=== PATIENT | female | born 1950 | race Caucasian/White ===

== ENCOUNTER → 2018-04-15 | Day surgery (SDC) | payer MEDICARE ==
[~2018-04-15] MED LIST: Acetaminophen 500 MG TAB PO SCH; Sodium Chloride 0.9% 30 ML ONE; diphenhydrAMINE 25 MG CAP PO SCH
[2018-04-15 12:40] LABS: Hemoglobin 8.6 g/dL (12.0-16.0)
[2018-04-15 16:01] VITALS: BP 140/65; TEMP 98.3
== END ==
LOC: ONC/OP 09:13
PROVIDERS: ATTEND Internal Medicine Hematology & Oncology
PROC: 30233N1 Transfusion of Nonautologous Red Blood Cells into Peripheral Vein, Percutaneous Approach (ICD-10-PCS; principal; 2018-04-15)
DX: D64.9 Anemia, unspecified (principal); D69.6 Thrombocytopenia, unspecified
CPT/HCPCS: 36430; 85014; 85018; 86850; 86900; 86901; J1642; P9016

== ENCOUNTER 2018-05-06 09:31 | Day surgery (SDC) | payer MEDICARE ==
[2018-05-06] MEDS ORDERED: Sodium Chloride 0.9% 20 ML ONE (09:46)
[2018-05-06] MEDS ORDERED: diphenhydrAMINE 25 MG CAP PO SCH (10:00)
[2018-05-06] MEDS ORDERED: Acetaminophen 500 MG TAB PO SCH (10:00)
[2018-05-06 16:08] VITALS: BP 110/60; TEMP 98.4
== END 2018-05-06 16:08 | disposition home or self-care (01) ==
LOC: ONC/OP 09:31
PROVIDERS: ATTEND Internal Medicine Hematology & Oncology
PROC: 30233N1 Transfusion of Nonautologous Red Blood Cells into Peripheral Vein, Percutaneous Approach (ICD-10-PCS; principal; 2018-05-06)
DX: D64.9 Anemia, unspecified (principal); D69.6 Thrombocytopenia, unspecified; Z88.8 Allergy status to other drugs, medicaments and biological substances
CPT/HCPCS: 36430; 85014; 85018; 86850; 86900; 86901; J1642; P9016; Q0163

== ENCOUNTER 2018-05-28 08:03 | Day surgery (SDC) | payer MEDICARE ==
[2018-05-28] MEDS ORDERED: Sodium Chloride 0.9% 20 ML ONE (08:26)
[2018-05-28] MEDS ORDERED: diphenhydrAMINE 25 MG CAP PO SCH (08:30)
[2018-05-28] MEDS ORDERED: Acetaminophen 500 MG TAB PO SCH (08:30)
[2018-05-28 11:44] LABS: #Eosinphils 0.3 thou/uL (0.0-0.7); #Lymphocytes 0.9 thou/uL (1.20-3.40); #Monocytes 0.3 thou/uL (0.11-0.59); #Neutrophils 1.8 thou/uL (1.40-6.50); %Basophils 0.4 % (0.0-1.0); %Eosinophils 7.9 % (0.0-10.0); %Lymphocytes 26.7 % (21.0-51.0); %Monocytes 9.9 % (0.0-10.0); %Neutrophils 55.2 % (42.0-75.0); Hemoglobin 8.6 g/dL (12.0-16.0); MDiff Complete? YES; Mean Corpuscular HGB CONC 32.7 g/dL (32.0-36.0); Mean Corpuscular Volume 88.9 fL (78.0-98.0); Mean Platelet Volume 9.2 fL (7.4-10.4); Platelet Count 47 thou/uL (130-400); Platelet Morphology Comment Appears Decreased; Polychromasia SLIGHT = 2-3 cells (100X) (0-2/hpf); RBC Distribution Width 13.9 % (11.5-14.5); Red Blood Cell (RBC) Count 2.96 mill/uL (4.20-5.40); White Blood Cell (WBC) Count 3.2 thou/uL (4.8-10.8)
[2018-05-28 14:31] VITALS: BP 139/62; TEMP 97.9
== END 2018-05-28 14:47 | disposition home or self-care (01) ==
LOC: ONC/OP 08:03
PROVIDERS: ATTEND Internal Medicine Hematology & Oncology
PROC: 30233N1 Transfusion of Nonautologous Red Blood Cells into Peripheral Vein, Percutaneous Approach (ICD-10-PCS; principal; 2018-05-28)
DX: D64.9 Anemia, unspecified (principal); D69.6 Thrombocytopenia, unspecified; Z88.8 Allergy status to other drugs, medicaments and biological substances
CPT/HCPCS: 36430; 85025; 86850; 86870; 86900; 86901; 86905; 86922; J1642; P9016; Q0163

== ENCOUNTER 2018-06-17 09:52 | Day surgery (SDC) | payer MEDICARE ==
[2018-06-17] MEDS ORDERED: Sodium Chloride 0.9% 20 ML ONE (10:33)
[2018-06-17] MEDS ORDERED: Acetaminophen 500 MG TAB PO SCH (11:00)
[2018-06-17] MEDS ORDERED: diphenhydrAMINE 25 MG CAP PO SCH (11:00)
[2018-06-17 15:46] VITALS: BP 140/63; TEMP 98.3
[2018-06-17 15:58] LABS: #Eosinphils 0.3 thou/uL (0.0-0.7); #Lymphocytes 0.8 thou/uL (1.20-3.40); #Monocytes 0.2 thou/uL (0.11-0.59); %Basophils 0.7 % (0.0-1.0); %Eosinophils 12.1 % (0.0-10.0); %Lymphocytes 35.7 % (21.0-51.0); %Monocytes 8.9 % (0.0-10.0); %Neutrophils 42.6 % (42.0-75.0); Hemoglobin 8.5 g/dL (12.0-16.0); Mean Corpuscular HGB CONC 33.5 g/dL (32.0-36.0); Mean Corpuscular Hemoglobin 29.4 pg (27.0-31.0); Mean Corpuscular Volume 87.8 fL (78.0-98.0); Mean Platelet Volume 8.7 fL (7.4-10.4); Platelet Count 34 thou/uL (130-400); RBC Distribution Width 13.2 % (11.5-14.5); Red Blood Cell (RBC) Count 2.89 mill/uL (4.20-5.40); White Blood Cell (WBC) Count 2.3 thou/uL (4.8-10.8)
== END 2018-06-17 15:43 | disposition home or self-care (01) ==
LOC: ONC/OP 09:52
PROVIDERS: ATTEND Internal Medicine Hematology & Oncology
PROC: 30233N1 Transfusion of Nonautologous Red Blood Cells into Peripheral Vein, Percutaneous Approach (ICD-10-PCS; principal; 2018-06-17)
DX: D64.9 Anemia, unspecified (principal); D69.6 Thrombocytopenia, unspecified; Z88.8 Allergy status to other drugs, medicaments and biological substances
CPT/HCPCS: 36430; 85025; 86850; 86900; 86901; 86922; J1642; P9016; Q0163

== ENCOUNTER 2018-06-25 09:44 | Day surgery (SDC) | payer MEDICARE ==
[2018-06-25] MEDS ORDERED: Sodium Chloride 0.9% 30 ML ONE (09:47)
[2018-06-25] MEDS ORDERED: diphenhydrAMINE 25 MG CAP PO SCH (10:15)
[2018-06-25] MEDS ORDERED: Acetaminophen 500 MG TAB PO SCH (10:15)
[2018-06-25 13:30] LABS: Hemoglobin 8.9 g/dL (12.0-16.0)
[2018-06-25 16:16] VITALS: BP 113/57; TEMP 97.8
== END 2018-06-25 16:17 | disposition home or self-care (01) ==
LOC: ONC/OP 09:44
PROVIDERS: ATTEND Internal Medicine Medical Oncology
PROC: 30233N1 Transfusion of Nonautologous Red Blood Cells into Peripheral Vein, Percutaneous Approach (ICD-10-PCS; principal; 2018-06-25)
DX: D64.9 Anemia, unspecified (principal); D69.6 Thrombocytopenia, unspecified; Z88.8 Allergy status to other drugs, medicaments and biological substances
CPT/HCPCS: 36430; 85014; 85018; 86850; 86900; 86901; 86922; J1642; P9016; Q0163

== ENCOUNTER 2018-07-14 09:24 | Day surgery (SDC) | payer MEDICARE ==
[2018-07-14] MEDS ORDERED: diphenhydrAMINE 25 MG CAP PO SCH (10:00)
[2018-07-14] MEDS ORDERED: Acetaminophen 500 MG TAB PO SCH (10:00)
[2018-07-14 16:38] VITALS: BP 114/60; TEMP 97.9
== END 2018-07-14 16:40 | disposition home or self-care (01) ==
LOC: ONC/OP 09:24
PROVIDERS: ATTEND Internal Medicine Hematology & Oncology
PROC: 30233R1 Transfusion of Nonautologous Platelets into Peripheral Vein, Percutaneous Approach (ICD-10-PCS; principal; 2018-07-14)
PROC: 30233N1 Transfusion of Nonautologous Red Blood Cells into Peripheral Vein, Percutaneous Approach (ICD-10-PCS; 2018-07-14)
DX: D64.9 Anemia, unspecified (principal); D69.6 Thrombocytopenia, unspecified
CPT/HCPCS: 36430; 85014; 85018; 86850; 86900; 86901; 86922; P9016; P9035; Q0163

== ENCOUNTER 2018-07-23 09:46 | Day surgery (SDC) | payer MEDICARE ==
[2018-07-23] MEDS ORDERED: diphenhydrAMINE 25 MG CAP PO SCH (10:30)
[2018-07-23] MEDS ORDERED: Acetaminophen 500 MG TAB PO SCH (10:30)
[2018-07-23] MEDS ORDERED: Sodium Chloride 0.9% 40 ML ONE (11:04)
[2018-07-23 16:03] LABS: Platelet Count 51 thou/uL (130-400)
[2018-07-23 18:42] VITALS: BP 135/63; TEMP 98
== END 2018-07-23 18:33 | disposition home or self-care (01) ==
LOC: ONC/OP 09:46
PROVIDERS: ATTEND Internal Medicine Hematology & Oncology
PROC: 30233N1 Transfusion of Nonautologous Red Blood Cells into Peripheral Vein, Percutaneous Approach (ICD-10-PCS; principal; 2018-07-23)
DX: D64.9 Anemia, unspecified (principal); D69.6 Thrombocytopenia, unspecified; Z88.8 Allergy status to other drugs, medicaments and biological substances
CPT/HCPCS: 36430; 85014; 85018; 85049; 86850; 86900; 86901; 86922; J1642; P9016; P9035; Q0163

== ENCOUNTER 2018-07-29 09:39 | Day surgery (SDC) | payer MEDICARE ==
[2018-07-29] MEDS ORDERED: Sodium Chloride 0.9% 20 ML ONE (09:46)
[2018-07-29] MEDS ORDERED: diphenhydrAMINE 25 MG CAP PO SCH (10:00)
[2018-07-29] MEDS ORDERED: Acetaminophen 500 MG TAB PO SCH (10:00)
[2018-07-29 11:58] VITALS: BP 111/56; TEMP 97.5
[2018-07-29 11:58] LABS: Hemoglobin 8.4 g/dL (12.0-16.0); Mean Corpuscular HGB CONC 35.1 g/dL (32.0-36.0); Mean Corpuscular Hemoglobin 29.8 pg (27.0-31.0); Mean Platelet Volume 7.7 fL (7.4-10.4); Platelet Count 49 thou/uL (130-400); RBC Distribution Width 13.4 % (11.5-14.5); Red Blood Cell (RBC) Count 2.82 mill/uL (4.20-5.40); White Blood Cell (WBC) Count 1.6 thou/uL (4.8-10.8)
[2018-07-29 12:48] LABS: Band 21 % (5-11); Eosinophils 30 % (0-10); Lymphocytes 26 % (21-51); MDiff Complete? YES; Monocytes 5 % (0-10); Neutrophil 17 % (42-75); Platelet Morphology Comment Appears Decreased; Polychromasia SLIGHT = 2-3 cells (100X) (0-2/hpf)
== END 2018-07-29 11:54 | disposition home or self-care (01) ==
LOC: ONC/OP 09:39
PROVIDERS: ATTEND Internal Medicine Hematology & Oncology
PROC: 30233R1 Transfusion of Nonautologous Platelets into Peripheral Vein, Percutaneous Approach (ICD-10-PCS; principal; 2018-07-29)
DX: D64.9 Anemia, unspecified (principal); D69.6 Thrombocytopenia, unspecified
CPT/HCPCS: 36430; 85025; 86900; 86901; J1642; P9035; Q0163

== ENCOUNTER 2018-08-05 11:11 | Day surgery (SDC) | payer MEDICARE ==
[2018-08-05] MEDS ORDERED: diphenhydrAMINE 25 MG CAP PO SCH (11:30)
[2018-08-05] MEDS ORDERED: Acetaminophen 500 MG TAB PO SCH (11:30)
[2018-08-05 13:31] VITALS: BP 102/56; TEMP 97.6
== END 2018-08-05 16:54 | disposition home or self-care (01) ==
LOC: ONC/OP 11:11
PROVIDERS: ATTEND Internal Medicine Hematology & Oncology
PROC: 30233R1 Transfusion of Nonautologous Platelets into Peripheral Vein, Percutaneous Approach (ICD-10-PCS; principal; 2018-08-05)
PROC: 30233N1 Transfusion of Nonautologous Red Blood Cells into Peripheral Vein, Percutaneous Approach (ICD-10-PCS; 2018-08-05)
DX: D64.9 Anemia, unspecified (principal); D69.6 Thrombocytopenia, unspecified; Z88.8 Allergy status to other drugs, medicaments and biological substances
CPT/HCPCS: 36430; 86850; 86870; 86900; 86901; 86922; P9035; Q0163

== ENCOUNTER 2018-08-06 09:20 | Day surgery (SDC) | payer MEDICARE ==
[2018-08-06] MEDS ORDERED: diphenhydrAMINE 25 MG CAP PO SCH (10:00)
[2018-08-06] MEDS ORDERED: Acetaminophen 500 MG TAB PO SCH (10:00)
[2018-08-06 12:45] LABS: Hemoglobin 7.3 g/dL (12.0-16.0); Platelet Count 39 thou/uL (130-400)
[2018-08-06 16:12] VITALS: TEMP 98
[2018-08-06 16:14] VITALS: BP 97/52
== END 2018-08-06 16:15 | disposition home or self-care (01) ==
LOC: ONC/OP 09:20
PROVIDERS: ATTEND Internal Medicine Hematology & Oncology
PROC: 30233R1 Transfusion of Nonautologous Platelets into Peripheral Vein, Percutaneous Approach (ICD-10-PCS; principal; 2018-08-06)
PROC: 30233N1 Transfusion of Nonautologous Red Blood Cells into Peripheral Vein, Percutaneous Approach (ICD-10-PCS; 2018-08-06)
DX: D64.9 Anemia, unspecified (principal); D69.6 Thrombocytopenia, unspecified; Z88.8 Allergy status to other drugs, medicaments and biological substances
CPT/HCPCS: 36430; 85014; 85018; 85049; 86850; 86860; 86870; 86880; 86900; 86901; 86905; 86922; 86972; P9016; P9035

== ENCOUNTER 2018-08-12 10:19 | Day surgery (SDC) | payer MEDICARE ==
[2018-08-12] MEDS ORDERED: diphenhydrAMINE 25 MG CAP PO SCH (10:45)
[2018-08-12] MEDS ORDERED: Acetaminophen 500 MG TAB PO SCH (10:45)
[2018-08-12 11:30] VITALS: TEMP 97.7
[2018-08-12] MEDS ORDERED: Sodium Chloride 0.9% 20 ML ONE (12:03)
[2018-08-12 13:12] LABS: Hemoglobin 7.8 g/dL (12.0-16.0); Mean Corpuscular HGB CONC 36.1 g/dL (32.0-36.0); Mean Corpuscular Hemoglobin 29.5 pg (27.0-31.0); Mean Corpuscular Volume 81.7 fL (78.0-98.0); Mean Platelet Volume 8.5 fL (7.4-10.4); Platelet Count 45 thou/uL (130-400); RBC Distribution Width 12.5 % (11.5-14.5); Red Blood Cell (RBC) Count 2.64 mill/uL (4.20-5.40); White Blood Cell (WBC) Count 0.6 thou/uL (4.8-10.8)
[2018-08-12 13:20] LABS: Band 4 % (5-11); Burr Cells SLIGHT = 2-5 cells (100X) (0-1/hpf); Eosinophils 44 % (0-10); Lymphocytes 48 % (21-51); MDiff Complete? YES; Neutrophil 4 % (42-75); Platelet Morphology Comment Appears Decreased; Polychromasia SLIGHT = 2-3 cells (100X) (0-2/hpf)
[2018-08-12 13:28] VITALS: BP 100/56
== END 2018-08-12 13:28 | disposition home or self-care (01) ==
LOC: ONC/OP 10:19
PROVIDERS: ATTEND Internal Medicine Hematology & Oncology
PROC: 30233R1 Transfusion of Nonautologous Platelets into Peripheral Vein, Percutaneous Approach (ICD-10-PCS; principal; 2018-08-12)
DX: D64.9 Anemia, unspecified (principal); D69.6 Thrombocytopenia, unspecified
CPT/HCPCS: 36430; 85025; 86900; 86901; J1642; P9035; Q0163

== ENCOUNTER 2018-08-19 09:54 | Day surgery (SDC) | payer MEDICARE ==
[2018-08-19] MEDS ORDERED: diphenhydrAMINE 25 MG CAP PO SCH (11:00)
[2018-08-19] MEDS ORDERED: Acetaminophen 500 MG TAB PO SCH (11:00)
[2018-08-19 15:23] LABS: Hemoglobin 6.7 g/dL (12.0-16.0); Platelet Count 45 thou/uL (130-400)
[2018-08-19 17:29] VITALS: BP 116/57; TEMP 98.1
== END 2018-08-19 17:29 | disposition home or self-care (01) ==
LOC: ONC/OP 09:54
PROVIDERS: ATTEND Internal Medicine Hematology & Oncology
PROC: 30233R1 Transfusion of Nonautologous Platelets into Peripheral Vein, Percutaneous Approach (ICD-10-PCS; principal; 2018-08-19)
DX: D64.9 Anemia, unspecified (principal); D69.6 Thrombocytopenia, unspecified; Z88.8 Allergy status to other drugs, medicaments and biological substances
CPT/HCPCS: 36430; 85014; 85018; 85049; 86850; 86900; 86901; 86922; P9016; P9035; Q0163

== ENCOUNTER 2018-08-26 10:03 | Day surgery (SDC) | payer MEDICARE ==
[2018-08-26 15:22] LABS: Hemoglobin 8.3 g/dL (12.0-16.0)
[2018-08-26] MEDS ORDERED: Diphenoxylate HCl/Atropine Tablet PO SCH (16:15)
[2018-08-26 17:40] VITALS: BP 144/71; TEMP 97.8
== END 2018-08-26 17:41 | disposition home or self-care (01) ==
LOC: ONC/OP 10:03
PROVIDERS: ATTEND Internal Medicine Hematology & Oncology
PROC: 30233R1 Transfusion of Nonautologous Platelets into Peripheral Vein, Percutaneous Approach (ICD-10-PCS; principal; 2018-08-26)
PROC: 30233N1 Transfusion of Nonautologous Red Blood Cells into Peripheral Vein, Percutaneous Approach (ICD-10-PCS; 2018-08-26)
DX: D64.9 Anemia, unspecified (principal); D69.6 Thrombocytopenia, unspecified
CPT/HCPCS: 36430; 36591; 85014; 85018; 86850; 86900; 86901; 86922; P9016; P9035

== ENCOUNTER 2018-08-28 07:26 | Inpatient (IN) | payer MEDICARE ==
--- NOTE | 2018-08-28 08:17 | RAD ---
Exam: CHEST 1 VIEW: HISTORY:Cough, weakness Comparison: None FINDINGS: Lungs: Left basilar density, retrocardiac is present. There is interstitial prominence bilaterally. N odule overlies the lateral right lung apex Cardiac silhouette:Enlarged Pulmonary vessels: Engorged Pleural Spaces: Left pleural-based density, inferiorly Pneumothorax: None Right-sided venous chest port. Osseous abnormalities: None of acuity. IMPRESSION: 1. Left basilar density, retrocardiac, which could relate to pleural fluid with adjacent atelectasis and/or pneumonia. 2. Bilateral interstitial opacities with prominent pulmonary vasculature, and enlarged cardiac silho uette favoring fluid overload, CHF. Correlate clinically. 3. Pulmonary nodule, right upper lung zone. Recommend dedicated CT thorax for further evaluation. Code LN Transcribed Date/Time: 08/28/2018 8:21 AM
[2018-08-28 08:20] LABS: Hemoglobin 10.2 g/dL (12.0-16.0); Mean Corpuscular HGB CONC 35.4 g/dL (32.0-36.0); Mean Platelet Volume 8.2 fL (7.4-10.4); Platelet Count 32 thou/uL (130-400); RBC Distribution Width 13.9 % (11.5-14.5); Red Blood Cell (RBC) Count 3.51 mill/uL (4.20-5.40); White Blood Cell (WBC) Count 0.5 thou/uL (4.8-10.8)
[2018-08-28 08:44] LABS: MDiff Complete? YES; Ovalocytes SLIGHT = 2-5 cells (100X) (0-1/hpf); Platelet Morphology Comment Appears Decreased; Polychromasia SLIGHT = 2-3 cells (100X) (0-2/hpf)
[2018-08-28 08:50] LABS: ALT (SGPT) 11 U/L (8-55); AST (SGOT) 11 U/L (5-34); Albumin 3.5 g/dL (3.4-4.8); Alkaline Phosphatase 81 U/L (40-150); Anion Gap 12 mmol/L (10-20); BUN (Urea Nitrogen) 15 mg/dL (9.8-20.1); Bilirubin, Total 1.1 mg/dL (0.2-1.2); Calc. Creatinine Clearance 0 mL/min (70-130); Calcium 8.9 mg/dL (7.8-10.44); Carbon Dioxide 17 mmol/L (23-31); Chloride 107 mmol/L (98-107); Estimated GFR-MDRD 37; Globulin 3.5 g/dL (2.4-3.5); Glucose 106 mg/dL (80-115); Lipase 27 U/L (8-78); Potassium 3.1 mmol/L (3.5-5.1); Sodium 133 mmol/L (136-145)
[2018-08-28 09:26] LABS: Bilirubin Negative (Negative); Blood, Urine Small (Negative); Clarity CLOUDY (Clear); Glucose, Urine (Dipstick) 250 mg/dL (Negative); Leukocyte Negative (Negative); Nitrite Negative (Negative); Protein, Urine (Dipstick) 100 mg/dL (Neg-Trace); Specific Gravity, Urine 1.019 (1.002-1.036)
[2018-08-28 09:28] LABS: Bacteria/HPF None Seen HPF (None Seen); Pathc Cast-AUWi Flag 2.31 (0-2.49)
[2018-08-28 09:31] LABS: Yeast-AUWi Flag 47.6 (0-25.0)
[2018-08-28 09:43] LABS: Hyaline Casts/LPF NONE SEEN LPF (0-3 Hyaline); Renal Epithelial None Seen HPF (0-3); Transitional Epithelial NONE SEEN HPF (0-3); Yeast-All Forms None Seen HPF (None Seen)
[2018-08-28] MEDS ORDERED: Cefepime 2 GM VIAL ONE (10:46)
[2018-08-28 13:27] VITALS: BMI 24.3
[2018-08-28] MEDS ORDERED: Prevnar 13-Val Conj/PF 0.5 ML SYRINGE IM ONE (13:45)
[2018-08-28] MEDS ORDERED: Ondansetron PF 4 MG/2 ML Vial IVP PRN (13:53)
[2018-08-28] MEDS ORDERED: Ondansetron ODT 4 MG TAB PO PRN (13:54)
[2018-08-28] MEDS ORDERED: Acetaminophen 325 MG TAB PO PRN (13:54)
[2018-08-28] MEDS ORDERED: Bisacodyl 5 MG TAB PO PRN (16:19)
--- NOTE | 2018-08-28 16:42 | HP ---
PRIMARY CARE PROVIDER: Dr. Teixeira at [facility]. CHIEF COMPLAINT: Generalized weakness. HISTORY OF PRESENT ILLNESS: Ms. Boles is a pleasant 68-year-old lady, who was seen at [facility] on August 28, 2018. She was diagnosed with myelodysplastic syndrome in July 2016. She was treated with Procrit for 6 months at [facility]. In February 2017, she entered a clinical trial. Continued to be transfusion dependent. She started seeing Dr. Daly and left a trial. In April 2018, she started treatment with Revlimid for 3 months. She continued to require platelet and blood transfusion every week. She stopped Revlimid 2-1/2 weeks ago. Over the last 2 weeks, she has had low-grade fevers. She reports cough that is nonproductive. She denies any urinary symptoms. She reports that T-max at home was 98.8 degrees Fahrenheit last night. She complains of severe generalized weakness. She had a bladder and platelet transfused 2 days ago. REVIEW OF SYSTEMS: All other systems reviewed and found to be negative. PAST MEDICAL HISTORY: Dyslipidemia, hypertension, and myelodysplastic syndrome. PAST SURGICAL HISTORY: None. PSYCHIATRIC HISTORY: Anxiety. FAMILY HISTORY: Cardiac arrest in her mother and coronary artery disease in her father. SOCIAL HISTORY: The patient denies tobacco use, alcohol use, or recreational drug use. ALLERGIES: ESCITALOPRAM AND LEXAPRO. CURRENT MEDICATIONS: 1. Atorvastatin 10 mg at bedtime. 2. Metoprolol tartrate 50 mg daily. 3. Exjade 2,000 mg daily. PHYSICAL EXAMINATION: GENERAL: On examination, Ms. Boles is awake and alert, not in acute distress. VITAL SIGNS: Blood pressure is 146/71, pulse 62, respiratory rate 18, and oxygen saturation 97% on room air. She is afebrile. EYES: No scleral icterus. No conjunctival pallor. ENT: Moist mucosal membranes. No oropharyngeal erythema or exudates. NECK: Supple, nontender, trachea is midline. RESPIRATORY: Accessory muscles of breathing are not active. Chest wall movements are symmetric bilaterally. Lungs are clear to auscultation without wheeze, rhonchi, or crepitations. CARDIOVASCULAR: S1 and S2 are heard, regular. Peripheral pulses palpable. No carotid bruit. No pericardial rub. ABDOMEN: Soft, nontender, bowel sounds heard. NEUROLOGIC: Cranial nerves 2 through 12 intact. Deep tendon reflexes 2+. MUSCULOSKELETAL: Power is 5/5 in all 4 extremities. SKIN: No rashes or subcutaneous nodules. LYMPHATIC: No cervical lymphadenopathy. PSYCHIATRIC: Normal mood. Normal affect. The patient is oriented to person, place, and time. LABORATORY DATA: Ms. Boles's labs and investigations were reviewed. She has leukopenia with total white count of 500, normocytic anemia with hemoglobin 10.2 , thrombocytopenia with platelet count of 32,000. Decreased sodium of 133, decreased potassium of 3.1, normal blood urea nitrogen, elevated creatinine of 1.42. Normal TSH. Unremarkable liver profile, and normal troponin I. Lactic acid is normal at 1.1. Urinalysis is negative for nitrite and leukocyte esterase. The patient also had a chest x-ray, which showed right upper lung nodule and left basilar density. ASSESSMENT AND PLAN: Ms. Boles is a pleasant 68-year-old lady, who was seen at [facility] on August 28, 2018. Her problem list includes: 1. Generalized weakness: Etiology unclear, could be related to thrombocytopenia and anemia. However, infection is also a possibility, given her history of low- grade fevers. She also has left basilar infiltrate on chest x-ray. 2. Pneumonia: The patient has been started on cefepime and vancomycin, we will continue the same and follow blood cultures. 3. Right pulmonary nodule: The patient will need followup as outpatient. 4. Hyponatremia: Mild, likely asymptomatic, will provide normal saline and recheck. 5. Acute kidney injury: Baseline creatinine is not known. We will start intravenous fluids and recheck her creatinine. 6. Hypokalemia: We will replace potassium and recheck. 7. Dyslipidemia: Continue statin. 8. Hypertension: Continue metoprolol, monitor vital signs and titrate antihypertensives as needed. Many thanks for allowing me to participate in your patient's care. Please feel free to contact me with any questions or concerns. LEVEL OF RISK: High. LEVEL OF COMPLEXITY: High. Job ID: [id number] [facility]
[2018-08-28] MEDS: Sodium Chloride 0.9% 1,000 ML IV SCH (17:49)
[2018-08-28] MEDS: Atorvastatin Calcium 20 MG TAB PO SCH (20:03)
[2018-08-28] MEDS: Temazepam 15 MG CAP PO SCH (20:03)
[2018-08-28] MEDS: Cefepime 2 GM in Sodium Chloride 0.9% 100 ML IVPB SCH (22:11)
[2018-08-29] MEDS ORDERED: Ondansetron ODT 4 MG TAB SL PRN (03:21)
[2018-08-29] MEDS: Acetaminophen 325 MG TAB PO PRN (03:23)
[2018-08-29] MEDS: Ondansetron PF 4 MG/2 ML Vial IVP PRN ×2 (03:24→18:11)
[2018-08-29] MEDS: Sodium Chloride 0.9% 1,000 ML IV SCH ×2 (03:26→20:27)
[2018-08-29 04:33] LABS: Hemoglobin 9.8 g/dL (12.0-16.0); Mean Corpuscular HGB CONC 36.3 g/dL (32.0-36.0); Mean Corpuscular Hemoglobin 29.9 pg (27.0-31.0); Mean Corpuscular Volume 82.2 fL (78.0-98.0); Mean Platelet Volume 8.8 fL (7.4-10.4); Platelet Count 20 thou/uL (130-400); RBC Distribution Width 13.9 % (11.5-14.5); Red Blood Cell (RBC) Count 3.27 mill/uL (4.20-5.40); White Blood Cell (WBC) Count 0.6 thou/uL (4.8-10.8)
[2018-08-29 04:51] LABS: Anion Gap 10 mmol/L (10-20); BUN (Urea Nitrogen) 12 mg/dL (9.8-20.1); Calc. Creatinine Clearance 50 mL/min (70-130); Calcium 8.4 mg/dL (7.8-10.44); Carbon Dioxide 17 mmol/L (23-31); Chloride 110 mmol/L (98-107); Estimated GFR-MDRD 44; Glucose 90 mg/dL (80-115); Potassium 3.2 mmol/L (3.5-5.1); Sodium 134 mmol/L (136-145)
[2018-08-29 05:06] LABS: Band 2 % (5-11); Eosinophils 2 % (0-10); Lymphocytes 78 % (21-51); MDiff Complete? YES; Monocytes 4 % (0-10); Neutrophil 8 % (42-75); Ovalocytes SLIGHT = 2-5 cells (100X) (0-1/hpf); Platelet Morphology Comment Appears Decreased; Reactive Lymphocytes 6 % (0-10)
[2018-08-29] MEDS: DEFERASIROX PO SCH (08:56)
[2018-08-29] MEDS: Vancomycin HCl 1 GM in Premix Bag 1 BAG IVPB SCH (08:59)
[2018-08-29] MEDS ORDERED: Potassium Chloride 20 MEQ TAB PO SCH ×2 (09:00)
[2018-08-29] MEDS: Cefepime 2 GM in Sodium Chloride 0.9% 100 ML IVPB SCH ×2 (10:14→23:33)
--- NOTE | 2018-08-29 12:32 | RAD ---
Exam: Chest 2 views: Reason: Follow-up pneumonia COMPARISON: 08/28/2018 FINDINGS: Right central line and injection port. Mild bilateral vascular congestion with some scattered linear and interstitial opacities bilaterally. Previously noted nodular density in the right upper lobe is less well-demonstrated on today's study. Biapical pleural thickening. No significant cardiomegaly. Heterogeneous bony demineralization. IMPRESSION: Bilateral linear and interstitial opacity changes. No evidence for pneumonia. Previously noted nodula r opacity in the right upper lobe less well-demonstrated on today's study. No evidence for new process.
[2018-08-29] MEDS ORDERED: Loperamide HCl 2 MG CAP PO SCH (15:30)
--- NOTE | 2018-08-29 15:30 | PDOC.PN ---
- Subjective Encounter Start Date: 08/29/18 Encounter Start Time: 07:00 Pt seen for followup re: - Objective Resuscitation Status - Order Detail: 08/28/18 16:19 Resuscitation Status Routine Resuscitation Status: PRTL: Cardiac only Discussed with: patient BERNA Reviewed: Yes Vital Signs & Weight: Vital Signs (12 hours) Temp Pulse Resp BP BP Pulse Ox 08/29/18 12:00 97.7 F 71 16 133/75 97 08/29/18 08:00 98.2 F 73 16 148/102 H 100 08/29/18 04:00 97.9 F 71 16 163/78 H 96 Weight Admit Weight 160 lb Weight 160 lb I&O: 08/28/18 08/29/18 08/30/18 06:59 06:59 06:59 Intake Total 1410 Balance 1410 Result Diagrams: 08/29/18 04:10 08/29/18 04:10 Additional Labs: labs reviewed by me Phys Exam - Physical Examination Constitutional: NAD HEENT: moist MMs Neck: supple Respiratory: clear to auscultation bilateral Cardiovascular: RRR Gastrointestinal: soft Neurological: moves all 4 limbs Psychiatric: normal affect Dx/Plan (1) Generalized weakness Code(s): R53.1 - WEAKNESS Status: Acute Comment: liksly a combination of infection and pancytopenia. Improving. (2) Pneumonia Code(s): J18.9 - PNEUMONIA, UNSPECIFIED ORGANISM Status: Acute Comment: continue IV vancomycin and cefepime (3) MILLER (acute kidney injury) Code(s): N17.9 - ACUTE KIDNEY FAILURE, UNSPECIFIED Status: Acute Comment: creatinine improved to 1.21 today. (4) Hyponatremia Code(s): E87.1 - HYPO-OSMOLALITY AND HYPONATREMIA Status: Acute Comment: sodium improved to 134 today (5) Hypokalemia Code(s): E87.6 - HYPOKALEMIA Status: Acute Comment: replace potassium (6) Pancytopenia Code(s): D61.818 - OTHER PANCYTOPENIA Status: Chronic Comment: secondary to MDS, oncology consulted (7) Myelodysplastic syndrome Code(s): D46.9 - MYELODYSPLASTIC SYNDROME, UNSPECIFIED Status: Chronic Comment: Oncology consulted - Plan * . Chect sttol for C. diff. If negative, start Imodium. Review of Systems - Review of Systems Constitutional: weakness Respiratory: Cough, Dry. negative: Shortness of Breath, Hemoptysis, SOB with Excertion, Pleuritic Pain, Sputum, Wheezing Cardiovascular: negative: chest pain, palpitations, orthopnea, paroxysmal nocturnal dyspnea, edema, light headedness Gastrointestinal: Diarrhea. negative: Nausea, Vomiting, Abdominal Pain, Constipation, Melena, Hematochezia - Medications/Allergies Allergies/Adverse Reactions: Allergies Allergy/AdvReac Type Severity Reaction Status Date / Time escitalopram [From Lexapro] Allergy Nausea Verified 08/28/18 13:14 Medications: Current Medications Acetaminophen (Tylenol) 650 mg PO Q6H PRN PRN Reason: Headache/Fever or Pain Last Admin: 08/29/18 03:23 Dose: 650 mg Atorvastatin Calcium (Lipitor) 20 mg PO HS [facility] Last Admin: 08/28/18 20:03 Dose: 20 mg Bisacodyl (Dulcolax) 10 mg PO DAILYPRN PRN PRN Reason: Constipation Last Admin: 08/29/18 08:58 Dose: 10 mg Vancomycin HCl 1 gm/ Device 200 mls @ 200 mls/hr IVPB 0900 [facility] Last Admin: 08/29/18 08:59 Dose: 200 mls Cefepime HCl 2 gm/ Sodium (Chloride) 100 mls @ 200 mls/hr IVPB 1100,2300 [facility] Last Admin: 08/29/18 10:14 Dose: 100 mls Sodium Chloride (Normal Saline 0.9%) 1,000 mls @ 70 mls/hr IV .[id number] [facility] Last Admin: 08/29/18 03:26 Dose: 1,000 mls Loperamide HCl (Imodium) 4 mg PO ONE [facility] Stop: 08/29/18 17:00 Loperamide HCl (Imodium) 2 mg PO PRN PRN PRN Reason: Diarrhea/Loose Stools Metoprolol Succinate (Toprol Xl) 50 mg PO DAILY [facility] Last Admin: 08/29/18 08:57 Dose: 50 mg Miscellaneous Medication (Pharmacy To Dose) 1 each IVPB ONE PRN PRN Reason: Pharmacy to dose Stop: 09/07/18 16:18 (Deferasirox [Exjade (] 4 Tab)) 4 tab PO DAILY [facility] Last Admin: 08/29/18 08:56 Dose: 4 tab Ondansetron HCl (Zofran) 4 mg IVP Q6H PRN PRN Reason: Nausea/Vomiting Last Admin: 08/29/18 03:24 Dose: 4 mg Ondansetron HCl (Zofran Odt) 4 mg SL Q6H PRN PRN Reason: Nausea/Vomiting Sodium Chloride (Flush - Normal Saline) 10 ml IVF Q12HR [facility] Last Admin: 08/29/18 09:00 Dose: 10 ml Sodium Chloride (Flush - Normal Saline) 10 ml IVF PRN PRN PRN Reason: Saline Flush Temazepam (Restoril) 15 mg PO HS [facility] Last Admin: 08/28/18 20:03 Dose: 15 mg
[2018-08-29 16:13] LABS: Hemoglobin 9.5 g/dL (12.0-16.0)
[2018-08-29] MEDS ORDERED: Lidocaine 2% Viscous Solution 10 ML, Aluminum & Magnesium Hydroxide 30 ML SSW SCH (19:15)
[2018-08-29] MEDS: Atorvastatin Calcium 20 MG TAB PO SCH (20:23)
[2018-08-29] MEDS: Temazepam 15 MG CAP PO SCH (20:23)
[2018-08-30 03:54] LABS: Anion Gap 9 mmol/L (10-20); BUN (Urea Nitrogen) 10 mg/dL (9.8-20.1); Calc. Creatinine Clearance 55 mL/min (70-130); Calcium 8.1 mg/dL (7.8-10.44); Carbon Dioxide 16 mmol/L (23-31); Chloride 114 mmol/L (98-107); Estimated GFR-MDRD 49; Glucose 87 mg/dL (80-115); Potassium 3.4 mmol/L (3.5-5.1); Sodium 136 mmol/L (136-145)
[2018-08-30 04:08] LABS: Platelet Count 12 thou/uL (130-400); White Blood Cell (WBC) Count 0.5 thou/uL (4.8-10.8)
[2018-08-30 04:44] LABS: Hemoglobin 8.9 g/dL (12.0-16.0); MDiff Complete? YES; Mean Corpuscular HGB CONC 35.4 g/dL (32.0-36.0); Mean Corpuscular Hemoglobin 29.2 pg (27.0-31.0); Mean Corpuscular Volume 82.6 fL (78.0-98.0); Mean Platelet Volume 10.5 fL (7.4-10.4); Platelet Morphology Comment Appears Decreased; Red Blood Cell (RBC) Count 3.03 mill/uL (4.20-5.40)
[2018-08-30] MEDS ORDERED: Potassium Chloride 20 MEQ TAB PO SCH (08:15)
[2018-08-30 08:27] LABS: Vancomycin, Trough 11.6 ug/mL
[2018-08-30] MEDS: Vancomycin HCl 1 GM in Premix Bag 1 BAG IVPB SCH (08:36)
[2018-08-30] MEDS: Cefepime 2 GM in Sodium Chloride 0.9% 100 ML IVPB SCH ×2 (10:37→22:24)
[2018-08-30] MEDS ORDERED: Lidocaine 2% Viscous Solution 10 ML, Aluminum & Magnesium Hydroxide 30 ML SSW PRN (10:43)
[2018-08-30 11:27] LABS: ALT (SGPT) 14 U/L (8-55); AST (SGOT) 12 U/L (5-34); Alkaline Phosphatase 68 U/L (40-150); Bilirubin, Direct 0.5 mg/dL (0.1-0.3); Protein, Total 6.1 g/dL (6.0-8.3)
[2018-08-30] MEDS: DEFERASIROX PO SCH (11:44)
[2018-08-30] MEDS: Loperamide HCl 2 MG CAP PO PRN (11:44)
--- NOTE | 2018-08-30 12:12 | ULT ---
EXAM: Abdominal ultrasound complete: HISTORY: Epigastric pain COMPARISON: None FINDINGS: Liver echogenicity is unremarkable. There is a focal circumscribed 1 cm diameter echogenic focus in t he right lobe, statistically a benign cavernous hemangioma. Upper range of normal size gallbladder without evidence of gallstones, wall thickening, or pericholec ystic fluid. The common bile duct is 0.3 cm. Visualized pancreas: Unremarkable. Visualized abdominal aorta: Unremarkable. Visualized IVC: Unremarkable. Visualized spleen: Unremarkable. Visualized kidneys: Moderate bilateral hydronephrosis. No mass, abscess, adenopathy, or abnormal fluid collection or other acute process. IMPRESSION: Moderate bilateral renal hydronephrosis. Echogenic focus in the right lobe of the liver, statisticall y a small benign cavernous hemangioma. Borderline size gallbladder without evidence of gallstones or other acute process.
[2018-08-30] MEDS: Cholestyramine/Aspartame 4 gm Packet PO SCH ×2 (13:11→22:25)
[2018-08-30] MEDS: Sodium Chloride 0.9% 1,000 ML IV SCH (13:12)
--- NOTE | 2018-08-30 13:57 | PDOC.PN ---
- Subjective Encounter Start Date: 08/30/18 Encounter Start Time: 07:00 Pt seen for followup re: pneumonia. Feels better. - Objective Resuscitation Status - Order Detail: 08/28/18 16:19 Resuscitation Status Routine Resuscitation Status: PRTL: Cardiac only Discussed with: patient BERNA Reviewed: Yes Vital Signs & Weight: Vital Signs (12 hours) Temp Pulse Resp BP BP Pulse Ox 08/30/18 11:45 97.3 F L 70 18 181/77 H 97 08/30/18 08:00 95 08/30/18 07:39 98.5 F 63 16 135/69 95 Weight Admit Weight 160 lb Weight 160 lb I&O: 08/29/18 08/30/18 08/31/18 06:59 06:59 06:59 Intake Total 1410 2730 Balance 1410 2730 Result Diagrams: 08/30/18 03:26 08/30/18 03:26 Additional Labs: Labs reviewed by me Phys Exam - Physical Examination Constitutional: NAD HEENT: moist MMs Neck: supple Respiratory: clear to auscultation bilateral Cardiovascular: RRR Gastrointestinal: soft Neurological: moves all 4 limbs Psychiatric: normal affect Dx/Plan (1) Pneumonia Code(s): J18.9 - PNEUMONIA, UNSPECIFIED ORGANISM Status: Acute Comment: will continue IV vancomycin and cefepime, await blood cultures (2) Hypokalemia Code(s): E87.6 - HYPOKALEMIA Status: Acute Comment: replace potassium (3) Pancytopenia Code(s): D61.818 - OTHER PANCYTOPENIA Status: Chronic Comment: appreciate oncology input (4) Myelodysplastic syndrome Code(s): D46.9 - MYELODYSPLASTIC SYNDROME, UNSPECIFIED Status: Chronic Comment: Oncology following (5) Generalized weakness Code(s): R53.1 - WEAKNESS Status: Resolved (6) MILLER (acute kidney injury) Code(s): N17.9 - ACUTE KIDNEY FAILURE, UNSPECIFIED Status: Resolved (7) Hyponatremia Code(s): E87.1 - HYPO-OSMOLALITY AND HYPONATREMIA Status: Resolved - Plan * . Review of Systems - Review of Systems Respiratory: Cough, Dry. negative: Shortness of Breath, Hemoptysis, SOB with Excertion, Pleuritic Pain, Sputum, Wheezing Cardiovascular: negative: chest pain, palpitations, orthopnea, paroxysmal nocturnal dyspnea, edema, light headedness - Medications/Allergies Allergies/Adverse Reactions: Allergies Allergy/AdvReac Type Severity Reaction Status Date / Time escitalopram [From Lexapro] Allergy Nausea Verified 08/28/18 13:14 Medications: Current Medications Acetaminophen (Tylenol) 650 mg PO Q6H PRN PRN Reason: Headache/Fever or Pain Last Admin: 08/29/18 03:23 Dose: 650 mg Atorvastatin Calcium (Lipitor) 20 mg PO HS [facility] Last Admin: 08/29/18 20:23 Dose: 20 mg Bisacodyl (Dulcolax) 10 mg PO DAILYPRN PRN PRN Reason: Constipation Last Admin: 08/29/18 08:58 Dose: 10 mg Cholestyramine Resin (Questran Light) 4 gm PO 1000,2200 [facility] Stop: 09/01/18 10:01 Last Admin: 08/30/18 13:11 Dose: 4 gm Lidocaine HCl 10 ml/ Al (Hydroxide/Mg Hydroxide 30 ml) 0 ml SSW Q8H PRN PRN Reason: heartburn Vancomycin HCl 1 gm/ Device 200 mls @ 200 mls/hr IVPB 0900 [facility] Last Admin: 08/30/18 08:36 Dose: 200 mls Cefepime HCl 2 gm/ Sodium (Chloride) 100 mls @ 200 mls/hr IVPB 1100,2300 [facility] Last Admin: 08/30/18 10:37 Dose: 100 mls Sodium Chloride (Normal Saline 0.9%) 1,000 mls @ 70 mls/hr IV .[id number] [facility] Last Admin: 08/30/18 13:12 Dose: 1,000 mls Loperamide HCl (Imodium) 2 mg PO PRN PRN PRN Reason: Diarrhea/Loose Stools Last Admin: 08/30/18 11:44 Dose: 2 mg Metoprolol Succinate (Toprol Xl) 50 mg PO DAILY [facility] Last Admin: 08/30/18 11:44 Dose: 50 mg Miscellaneous Medication (Pharmacy To Dose) 1 each IVPB ONE PRN PRN Reason: Pharmacy to dose Stop: 09/07/18 16:18 (Deferasirox [Exjade (] 4 Tab)) 4 tab PO DAILY [facility] Last Admin: 08/30/18 11:44 Dose: 4 tab Ondansetron HCl (Zofran) 4 mg IVP Q6H PRN PRN Reason: Nausea/Vomiting Last Admin: 08/29/18 18:11 Dose: 4 mg Ondansetron HCl (Zofran Odt) 4 mg SL Q6H PRN PRN Reason: Nausea/Vomiting Sodium Chloride (Flush - Normal Saline) 10 ml IVF Q12HR [facility] Last Admin: 08/30/18 08:39 Dose: 10 ml Sodium Chloride (Flush - Normal Saline) 10 ml IVF PRN PRN PRN Reason: Saline Flush Temazepam (Restoril) 15 mg PO HS [facility] Last Admin: 08/29/18 20:23 Dose: 15 mg
[2018-08-30] MEDS: Atorvastatin Calcium 20 MG TAB PO SCH (19:55)
[2018-08-30] MEDS: Temazepam 15 MG CAP PO SCH (19:56)
[2018-08-30] MEDS: Ondansetron PF 4 MG/2 ML Vial IVP PRN (19:56)
[2018-08-31] MEDS: Ondansetron PF 4 MG/2 ML Vial IVP PRN ×2 (01:38→12:53)
--- NOTE | 2018-08-31 02:28 | CON ---
DATE OF CONSULTATION: 08/29/2018 REASON FOR CONSULTATION: Pancytopenia. HISTORY OF PRESENT ILLNESS: This is a 68-year-old female diagnosed with low-grade myelodysplastic syndrome in November 2015. She was initially managed with Procrit and was subsequently treated with Dacogen. Dacogen was discontinued because of lack of response. Most recently, she was on Revlimid, which led to diarrhea and did not result in improvement in pancytopenia. She has required frequent packed red cells and platelet transfusion. She was hospitalized with the complaint of severe weakness and low-grade fever. A single-view chest x-ray at the time of admission in the emergency room raised the possibility of atelectasis and/or pneumonia. The patient was cultured and started on cefepime and vancomycin. The patient has been essentially afebrile in the hospital. Today, she complains of feeling bad and weak. She also admits of upper abdominal discomfort. She still has somewhat loose stools. PAST MEDICAL HISTORY: Positive for hypertension, hyperlipidemia, arthritis, anxiety, ITP, mitral valve prolapse, and basal cell carcinoma of the skin. PAST SURGICAL HISTORY: Include tonsillectomy, bilateral tubal ligation, and resection of basal cell carcinoma. FAMILY HISTORY: Sister has a history of breast cancer and mother had heart disease. PERSONAL AND SOCIAL HISTORY: The patient lives with her . She does not have children. She has never smoked and drinks rarely. 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 REVIEW OF SYSTEMS: As above. PHYSICAL EXAMINATION: GENERAL: The patient appears chronically ill and is alert and oriented. VITAL SIGNS: Temperature 98.6, pulse 65, respirations 20, O2 saturation 95%, blood pressure 157/76. HEENT: Unremarkable. NECK: There is no peripheral lymphadenopathy. CHEST: Vesicular breath sounds of equal intensity bilaterally. HEART: S1 and S2. ABDOMEN: Soft without hepatosplenomegaly. EXTREMITIES: Without pedal edema. LABORATORY DATA: CBC showed WBC of , hemoglobin 9.8 g, and platelet count of 20,000. Differential shows 8% neutrophils, 2% bands, and 78% lymphocytes. Basic metabolic profile shows potassium of 3.2, creatinine 1.2, sodium 134. A repeat chest x-ray, PA, lateral, did not show pneumonia. ASSESSMENT AND RECOMMENDATION: This patient has chronic pancytopenia. So far, the cultures have been negative and she did not seem to have pneumonia. For now, the antibiotics will be continued. If the cultures remain negative tomorrow, and she remains afebrile, she could potentially be discharged to be followed on an outpatient basis. Job ID: [id number]
[2018-08-31] MEDS: Sodium Chloride 0.9% 1,000 ML IV SCH ×2 (02:36→22:35)
[2018-08-31 04:02] LABS: Anion Gap 8 mmol/L (10-20); BUN (Urea Nitrogen) 11 mg/dL (9.8-20.1); Calc. Creatinine Clearance 60 mL/min (70-130); Calcium 7.8 mg/dL (7.8-10.44); Carbon Dioxide 15 mmol/L (23-31); Chloride 114 mmol/L (98-107); Estimated GFR-MDRD 55; Glucose 99 mg/dL (80-115); Potassium 3.3 mmol/L (3.5-5.1); Sodium 134 mmol/L (136-145)
[2018-08-31 04:28] LABS: Hemoglobin 8.5 g/dL (12.0-16.0); Mean Corpuscular HGB CONC 35.4 g/dL (32.0-36.0); Mean Corpuscular Hemoglobin 29.2 pg (27.0-31.0); Mean Corpuscular Volume 82.3 fL (78.0-98.0); Red Blood Cell (RBC) Count 2.91 mill/uL (4.20-5.40); White Blood Cell (WBC) Count 0.6 thou/uL (4.8-10.8)
[2018-08-31 04:35] LABS: Mean Platelet Volume 13.3 fL (7.4-10.4); Platelet Count 6 thou/uL (130-400)
[2018-08-31 04:44] LABS: Eosinophils 2 % (0-10); Lymphocytes 94 % (21-51); MDiff Complete? YES; Neutrophil 2 % (42-75); Platelet Morphology Comment Appears Decreased; Reactive Lymphocytes 2 % (0-10)
--- NOTE | 2018-08-31 07:41 | HP ---
ADDENDUM: I discussed Ms. Boles's code status. She does not wish to be intubated. She would like to have cardiac resuscitation only. This has been documented in the chart. The patient also has leukopenia and thrombocytopenia. Her case has been discussed by emergency room physician with the oncology on-call. Oncology Service will be consulted for further management. Job ID: [id number]
[2018-08-31] MEDS: Potassium Chloride 20 MEQ TAB PO SCH ×2 (08:24→12:00)
[2018-08-31] MEDS: Loperamide HCl 2 MG CAP PO PRN ×3 (08:24→16:10)
[2018-08-31] MEDS: Cefdinir 300 MG CAP PO SCH ×2 (08:24→20:38)
[2018-08-31] MEDS: DEFERASIROX PO SCH (08:28)
[2018-08-31] MEDS: Cholestyramine/Aspartame 4 gm Packet PO SCH ×2 (09:50→22:36)
--- NOTE | 2018-08-31 10:23 | CON ---
DATE OF CONSULTATION: 08/30/[address] Kingston Gee. REASON FOR CONSULTATION: 1. Abdominal pain with nausea and one episode of vomiting last night. 2. Diarrhea over the last several weeks. HISTORY OF PRESENT ILLNESS: Ms. Carmelina Boles is a very pleasant 68-year-old female who has seen Dr. Teixeira, her primary doctor. The patient was diagnosed to have myelodysplastic syndrome with anemia, cytopenia in 2017. She was going to [facility] for several months. Subsequently changed to Dr. Ej Daly. The patient has periodical transfusion of blood products. The last one was done about 4 days ago after hemoglobin of 6 and platelet count was 3. She was given platelet transfusion and 2 units of blood this past Friday, 4 days ago. The patient says she feels better after transfusion. However, she felt fatigued, has generalized weakness and lack of energy over the last several days. She does have some low-grade fever off and on. The patient takes Revlimid for her myelodysplastic syndrome, which has been stopped about three weeks ago because of diarrhea and thrombocytopenia. She was having multiple stools every day. Every time she ate she has to run to the bathroom. She had about 5 or 6 stools per day. The stools are watery. . The patient has stool studies as outpatient and came back negative. She had a stool study here, which came back negative for C. difficile. The patient complained of diffuse soreness off and on. Yesterday after she ate, she felt some pain over the epigastric area and has felt nauseous and she threw up one time. Today, the pain is almost gone except she feels sore all over abdomen. There is no nausea, no vomiting. There is no history of dysphagia, odynophagia. The patient has had a colonoscopy four years ago at [facility] and was told to be negative. This was done for screening purposes. Since admission, the patient has had a chest x-ray and there is mention of bilateral interstitial opacity, but no definite pneumonia. She had IV antibiotics. She is also pending to have abdominal sonogram because of abdominal pain she had yesterday. She said she slept very well and she is actually feeling whole lot better today. No relevant symptoms. ALLERGIES: LEXAPRO. SOCIAL HISTORY: The patient does not smoke or drink alcohol. MEDICAL ILLNESSES: 1. Hypertension. 2. Hyperlipidemia. 3. Myelodysplastic syndrome since 2017. 4. Pancytopenia. PAST SURGICAL HISTORY: None. MEDICATIONS: At time of admission include; 1. Atorvastatin. 2. Metoprolol. 3. Exjade . FAMILY HISTORY: Her sister of breast cancer about 4 years ago. Her sister was diagnosed with breast cancer in 1993, and she lived free of tumor for almost 18 to 20 years. She had metastatic cancer four years ago and from the breast cancer. No family history of bone marrow disorder. REVIEW OF SYSTEMS: 10-point system reviewed. HEAD: No headache. No dizziness. No seizure disorder. EYES: No impaired vision. No diplopia. EARS: No pain or discharge. NOSE: No nose bleeding. THROAT: No sore throat or dysphagia. NECK: No stiffness or pain. LUNGS: No chronic cough, but she is having some coughing and some mucoid expectoration. She also has some low-grade fever. No dyspnea. No hemoptysis. CARDIOVASCULAR: No chest pain. No palpitation. No dyspnea, orthopnea, PND. GI: History of diarrhea over the last several weeks and was felt to be due to Revlimid and was stopped about 3 weeks ago. However, her diarrhea has persisted, but the frequency is getting better as per the patient. No hematochezia. : No dysuria, hematuria, or frequent urination. MUSCULOSKELETAL/ENDOCRINE: With muscle aches and some pain. NEUROPSYCHIATRY: History of anxiety. PHYSICAL EXAMINATION: GENERAL: She is a very pleasant female, appears very comfortable. She is awake, alert, and communicative. She is a very good historian. VITAL SIGNS: She is afebrile. Temperature 98.5 degrees Fahrenheit, pulse is 63, blood pressure 134/68. HEENT: Conjunctivae clear. NECK: Supple. No adenitis or thyromegaly noted. CARDIOVASCULAR: First and second heart sounds heard. LUNGS: Clear to auscultation. ABDOMEN: Soft, nondistended. She is minimally tender all over the abdomen. There is no particular area of CVA tenderness. There is no rebound or guarding. Bowel sounds normal. EXTREMITIES: No edema. LABORATORY DATA: Shows severe cytopenia. Total WBC count is 5500, hemoglobin last 10.2 yesterday, dropped to 8.9 today, hematocrit 26.1, MCV 80.6, platelet count 12,000 and yesterday 32,000. Chem-7 is essentially normal. Potassium slightly over 3.4, CO2 is 16, BUN is 10, glucose 87. LFTs are normal. Total protein 3.5. TSH 1.9219. CLINICAL IMPRESSION: 1. Vague abdominal pain and one episode of vomiting yesterday. She has mild abdominal soreness now. Abdominal sonogram is pending at present time. 2. Myelodysplastic syndrome from the treatment over the last two years. 3. Severe cytopenia, pancytopenia. 4. Diarrhea, most likely felt to be due to Revlimid which is off medication for the last 3 weeks. Diarrhea seems to be getting slightly better. 5. Hypertension. 6. Hyperlipidemia. RECOMMENDATION: 1. May try Questran 1 packet twice a day to slow down the diarrhea. I encouraged the patient to eat as much as she can. 2. Hematology input and may transfuse as needed. Job ID: [id number]
--- NOTE | 2018-08-31 11:07 | CON ---
DATE OF CONSULTATION: 08/30/2018 REASON FOR CONSULTATION: Abnormal ultrasound demonstrating "bilateral hydronephrosis." HISTORY: Ms. Boles is a 68-year-old female with a history of a myelodysplastic syndrome diagnosed back in 2017. She was on a clinical trial for treatment and received chemotherapy. She has required transfusions on a relatively regular basis. She presents now for feelings of weakness and low-grade fever. She is noted to be neutropenic as expected. She is admitted for neutropenia with fever. As part of our workup, an abdominal ultrasound was performed. The abdominal ultrasound demonstrates "bilateral hydronephrosis." The patient denies any flank pain. Denies any prior urologic history. She denies any voiding difficulty. Denies dysuria. PAST MEDICAL HISTORY: 1. Dyslipidemia. 2. Hypertension. 3. Myelodysplastic syndrome. PAST SURGICAL HISTORY: None. SOCIAL HISTORY: She is a nonsmoker. Denies excessive alcohol use. ALLERGIES: LEXAPRO AND ESCITALOPRAM. CHRONIC MEDICATIONS: 1. Atorvastatin. 2. Metoprolol. 3. Exjade REVIEW OF SYSTEMS: RESPIRATORY: Denies any shortness of breath or cough. CARDIOVASCULAR: Denies chest pain or palpitations. GASTROINTESTINAL: Denies chronic constipation or diarrhea. HEMATOLOGIC: Please see history of present illness. GENITOURINARY: Please see history of present illness. NEUROLOGIC: Denies any focal impairment suggestive of CVA. PHYSICAL EXAMINATION: GENERAL: She is awake and alert. She is in no distress at this time. VITAL SIGNS: Blood pressure 138/82, pulse 78, respiratory rate 18. HEENT: Normocephalic and atraumatic. NECK: Supple without masses. CHEST: Clear to auscultation. CARDIOVASCULAR: No murmurs auscultated. ABDOMEN: Soft and nontender. No palpable masses. Liver and spleen not palpable. No abdominal tenderness noted. PELVIC: Deferred. LABORATORY DATA: White count 0.5, hemoglobin 8.9, and hematocrit 25.1. Urinalysis on admission demonstrated 4-6 red blood cells, 4-6 white blood cells, no bacteria seen. IMPRESSION: Bilateral hydronephrosis on an abdominal ultrasound. I was able to compare this ultrasound to a CT scan performed at [facility] in 2017. The CT scan demonstrates bilateral peripelvic cysts. This tends to be confused with hydronephrosis when evaluated by US as done today. I do not believe she has hydronephrosis, only peripelvic cyst. This is chronic and unchanged. No further recommendations or workup recommended. Job ID: [id number] MTDD
[2018-08-31] MEDS ORDERED: Promethazine HCl 25 MG/ML VIAL IM PRN (19:00)
--- NOTE | 2018-08-31 19:00 | PDOC.PN ---
- Subjective Encounter Start Date: 08/31/18 Encounter Start Time: 07:00 Pt seen for followup re: pneumonia. c/o nausea and vomiting. - Objective Resuscitation Status - Order Detail: 08/28/18 16:19 Resuscitation Status Routine Resuscitation Status: PRTL: Cardiac only Discussed with: patient BERNA Reviewed: Yes Vital Signs & Weight: Vital Signs (12 hours) Temp Pulse Resp BP Pulse Ox 08/31/18 16:42 98.2 F 74 16 163/74 H 98 08/31/18 11:52 98.5 F 68 18 138/69 95 08/31/18 08:00 98 08/31/18 07:30 98.6 F 65 18 150/77 H 98 Weight Admit Weight 160 lb Weight 160 lb I&O: 08/30/18 08/31/18 09/01/18 06:59 06:59 06:59 Intake Total 2730 2600 1740 Balance 2730 2600 1740 Result Diagrams: 08/31/18 03:32 08/31/18 03:32 Additional Labs: labs reviewed by me Phys Exam - Physical Examination Constitutional: NAD HEENT: moist MMs Neck: supple Respiratory: clear to auscultation bilateral Cardiovascular: RRR Gastrointestinal: soft Neurological: moves all 4 limbs Psychiatric: normal affect Dx/Plan (1) Pneumonia Code(s): J18.9 - PNEUMONIA, UNSPECIFIED ORGANISM Status: Acute Comment: switch to oral antibiotics (2) Hypokalemia Code(s): E87.6 - HYPOKALEMIA Status: Acute Comment: replace potassium (3) Pancytopenia Code(s): D61.818 - OTHER PANCYTOPENIA Status: Chronic Comment: to follow up with oncology as outpatient (4) Myelodysplastic syndrome Code(s): D46.9 - MYELODYSPLASTIC SYNDROME, UNSPECIFIED Status: Chronic Comment: Oncology following (5) Generalized weakness Code(s): R53.1 - WEAKNESS Status: Resolved (6) MILLER (acute kidney injury) Code(s): N17.9 - ACUTE KIDNEY FAILURE, UNSPECIFIED Status: Resolved (7) Hyponatremia Code(s): E87.1 - HYPO-OSMOLALITY AND HYPONATREMIA Status: Resolved - Plan * . trial Phenergan for nausea and vomiting. Likely home tomorrow. Review of Systems - Review of Systems Cardiovascular: negative: chest pain, palpitations, orthopnea, paroxysmal nocturnal dyspnea, edema, light headedness Gastrointestinal: Nausea, Vomiting. negative: Abdominal Pain, Diarrhea, Constipation, Melena, Hematochezia - Medications/Allergies Allergies/Adverse Reactions: Allergies Allergy/AdvReac Type Severity Reaction Status Date / Time escitalopram [From Lexapro] Allergy Nausea Verified 08/28/18 13:14 Medications: Current Medications Acetaminophen (Tylenol) 650 mg PO Q6H PRN PRN Reason: Headache/Fever or Pain Last Admin: 08/29/18 03:23 Dose: 650 mg Atorvastatin Calcium (Lipitor) 20 mg PO HS [facility] Last Admin: 08/30/18 19:55 Dose: 20 mg Bisacodyl (Dulcolax) 10 mg PO DAILYPRN PRN PRN Reason: Constipation Last Admin: 08/29/18 08:58 Dose: 10 mg Cefdinir (Omnicef) 300 mg PO BID [facility] Last Admin: 08/31/18 08:24 Dose: 300 mg Cholestyramine Resin (Questran Light) 4 gm PO 1000,2200 [facility] Stop: 09/01/18 10:01 Last Admin: 08/31/18 09:50 Dose: 4 gm Lidocaine HCl 10 ml/ Al (Hydroxide/Mg Hydroxide 30 ml) 0 ml SSW Q8H PRN PRN Reason: heartburn Sodium Chloride (Normal Saline 0.9%) 1,000 mls @ 70 mls/hr IV .[id number] [facility] Last Admin: 08/31/18 02:36 Dose: 1,000 mls Loperamide HCl (Imodium) 2 mg PO PRN PRN PRN Reason: Diarrhea/Loose Stools Last Admin: 08/31/18 16:10 Dose: 2 mg Metoprolol Succinate (Toprol Xl) 50 mg PO DAILY [facility] Last Admin: 08/31/18 08:25 Dose: 50 mg Miscellaneous Medication (Pharmacy To Dose) 1 each IVPB PRN PRN PRN Reason: Pharmacy to dose Ondansetron HCl (Zofran) 4 mg IVP Q6H PRN PRN Reason: Nausea/Vomiting Last Admin: 08/31/18 12:53 Dose: 4 mg Ondansetron HCl (Zofran Odt) 4 mg SL Q6H PRN PRN Reason: Nausea/Vomiting Last Admin: 08/31/18 02:36 Dose: 4 mg (Deferasirox [Exjade (] 4 Tab)) 0 each PO DAILY [facility] Last Admin: 08/31/18 08:28 Dose: 1 each Promethazine HCl (Phenergan) 25 mg IM/IV Q6H PRN PRN Reason: Nausea/Vomiting Sodium Chloride (Flush - Normal Saline) 10 ml IVF Q12HR [facility] Last Admin: 08/31/18 09:50 Dose: 10 ml Sodium Chloride (Flush - Normal Saline) 10 ml IVF PRN PRN PRN Reason: Saline Flush Temazepam (Restoril) 15 mg PO HS [facility] Last Admin: 08/30/18 19:56 Dose: 15 mg
[2018-08-31] MEDS ORDERED: Promethazine HCl 25 MG in Sodium Chloride 0.9% 50 ML IVPB PRN (19:07)
[2018-08-31] MEDS: Atorvastatin Calcium 20 MG TAB PO SCH (20:38)
[2018-08-31] MEDS: Temazepam 15 MG CAP PO SCH (20:38)
[2018-09-01] MEDS ORDERED: hydrALAZINE 20 MG/ML VIAL SLOW IVP SCH (03:45)
[2018-09-01] MEDS: DEFERASIROX PO SCH (07:35)
[2018-09-01 07:59] LABS: Anion Gap 9 mmol/L (10-20); BUN (Urea Nitrogen) 5 mg/dL (9.8-20.1); Calc. Creatinine Clearance 71 mL/min (70-130); Carbon Dioxide 15 mmol/L (23-31); Chloride 113 mmol/L (98-107); Estimated GFR-MDRD 66; Glucose 94 mg/dL (80-115); Potassium 3.3 mmol/L (3.5-5.1); Sodium 134 mmol/L (136-145)
[2018-09-01 08:04] LABS: Hemoglobin 8.3 g/dL (12.0-16.0); Mean Corpuscular HGB CONC 35.9 g/dL (32.0-36.0); Mean Corpuscular Hemoglobin 29.3 pg (27.0-31.0); Mean Corpuscular Volume 81.5 fL (78.0-98.0); Mean Platelet Volume 7.9 fL (7.4-10.4); Platelet Count 41 thou/uL (130-400); Red Blood Cell (RBC) Count 2.82 mill/uL (4.20-5.40); White Blood Cell (WBC) Count 0.6 thou/uL (4.8-10.8)
[2018-09-01] MEDS: Cefdinir 300 MG CAP PO SCH (09:34)
[2018-09-01] MEDS: Acetaminophen 325 MG TAB PO PRN (11:21)
[2018-09-01] MEDS: Sodium Chloride 0.9% 1,000 ML IV SCH (11:21)
[2018-09-01] MEDS: Cholestyramine/Aspartame 4 gm Packet PO SCH (11:21)
[2018-09-01 11:24] LABS: Eosinophils 2 % (0-10); Lymphocytes 93 % (21-51); MDiff Complete? YES; Monocytes 3 % (0-10); Neutrophil 2 % (42-75); Platelet Morphology Comment Appears Decreased
[2018-09-01 11:29] VITALS: BP 142/69; TEMP 98.9
--- NOTE | 2018-09-02 04:11 | DIS ---
DATE OF ADMISSION: 08/28/2018 DATE OF DISCHARGE: 09/01/2018 PRIMARY CARE PROVIDER: Dr. Harry Teixeira. DISCHARGE DIAGNOSES: 1. Pneumonia. 2. Right lung nodule. 3. Hyponatremia. 4. Acute kidney injury. 5. Pancytopenia. 6. Intractable nausea. 7. Diarrhea. CONDITION OF PATIENT ON THE DAY OF DISCHARGE: Stable. I assessed Ms. Boles on the day of discharge. She denies any chest pain or shortness of breath. Vital signs are stable. S1 and S2 are heard, regular. Lungs are clear to auscultation bilaterally. DISCHARGE MEDICATIONS: She is being discharged home on cefdinir 300 mg 2 times a day for 7 days, in addition to her pre-admission home medications as dictated on my history and physical note dated August 28, 2018. CONSULTATIONS DURING THIS HOSPITALIZATION: 1. Oncology, Heidy Hankins MD. 2. Gastroenterology, Dr. Melendez. HOSPITAL COURSE: Ms. Boles is a pleasant 68-year-old lady, who was admitted to [facility] on August 28, 2018, for generalized weakness and pneumonia. Please refer to my history and physical note dated August 28, 2018, for further details. She was treated with intravenous antibiotics and stepped down to oral antibiotics at the time of discharge. She also complained of abdominal pain. She was seen by Gastroenterology Service. Abdominal ultrasound showed moderate bilateral renal hydronephrosis and echogenic focus in the right lobe of the liver, statistically a small benign cavernous hemangioma. She had borderline-sized gallbladder without evidence of gallstones or other acute process. Because of concern over hydronephrosis, she was seen by Urology Service. Dr. Woodward was able to compare the ultrasound. CT scan performed at [facility] in 2017. That scan showed bilateral peripelvic cysts, which tend to be confused with hydronephrosis when evaluated by ultrasound. He reassured her that this is chronic and unchanged. Gastroenterology Service also saw her for abdominal pain and diarrhea. They trialed Questran. During this hospitalization, Clostridium difficile test was negative. Stool occult blood test was negative. At the time of admission, she had a chest x-ray done, which showed right-sided pulmonary nodule. She was advised to have outpatient followup for the same through her primary care provider. Please note that she had a repeat chest x-ray done on August 29, which the nodular opacity was less well demonstrated. She was hypokalemic during this hospitalization. She has been advised to eat bananas to maintain her potassium levels. On the day of discharge, she has sodium 134, potassium 3.3, creatinine 0.85 which improved from 1.21 at the time of admission. White count 600, hemoglobin 8.3, and platelet count 41,000. She was seen by Oncology Service as well and has been cleared for discharge by Oncology Service. Many thanks for allowing me to participate in your patient's care. Please feel free to contact me with any questions or concerns. DISCHARGE DESTINATION: Home. TIME SPENT: Total amount of time spent coordinating this discharge: 32 minutes. Job ID: [id number]
== END 2018-09-01 13:01 | disposition home or self-care (01) | DRG 194 ==
LOC: ERS 07:26 → ONC 13:05
PROVIDERS: ADMIT Internal Medicine; ATTEND Internal Medicine
DX: J18.9 Pneumonia, unspecified organism (principal); D61.818 Other pancytopenia; N17.9 Acute kidney failure, unspecified; E87.1 Hypo-osmolality and hyponatremia; K52.1 Toxic gastroenteritis and colitis; N13.30 Unspecified hydronephrosis; D69.3 Immune thrombocytopenic purpura; F41.9 Anxiety disorder, unspecified; E78.00 Pure hypercholesterolemia, unspecified; I10 Essential (primary) hypertension; D46.9 Myelodysplastic syndrome, unspecified; T45.1X5A Adverse effect of antineoplastic and immunosuppressive drugs, initial encounter; M19.90 Unspecified osteoarthritis, unspecified site; R91.8 Other nonspecific abnormal finding of lung field; Z88.8 Allergy status to other drugs, medicaments and biological substances; E87.6 Hypokalemia; Z79.899 Other long term (current) drug therapy; Z85.828 Personal history of other malignant neoplasm of skin
CPT/HCPCS: 36430; 36591; 71045; 71046; 76700; 80048; 80053; 80076; 80202; 81003; 81015; 82274; 83605; 83690; 84443; 84484; 85014; 85018; 85025; 86850; 86900; 86901; 86922; 87040; 87086; 87324; 87449; 93005; 96365; 96367; J0360; J0692; J2405; J3370; J3490; P9016; P9035; Q0162

== ENCOUNTER 2018-09-09 10:09 | Day surgery (SDC) | payer MEDICARE ==
[2018-09-09] MEDS ORDERED: Sodium Chloride 0.9% 40 ML ONE (10:28)
[2018-09-09] MEDS ORDERED: Acetaminophen 500 MG TAB PO SCH (10:45)
[2018-09-09] MEDS ORDERED: diphenhydrAMINE 25 MG CAP PO SCH (10:45)
[2018-09-09 14:57] LABS: Hemoglobin 6.6 g/dL (12.0-16.0); Platelet Count 51 thou/uL (130-400)
[2018-09-09 17:47] VITALS: BP 139/98; TEMP 97.6
== END 2018-09-09 17:48 | disposition home or self-care (01) ==
LOC: ONC/OP 10:09
PROVIDERS: ATTEND Internal Medicine Hematology & Oncology
PROC: 30233R1 Transfusion of Nonautologous Platelets into Peripheral Vein, Percutaneous Approach (ICD-10-PCS; principal; 2018-09-09)
PROC: 30233N1 Transfusion of Nonautologous Red Blood Cells into Peripheral Vein, Percutaneous Approach (ICD-10-PCS; 2018-09-09)
DX: D64.9 Anemia, unspecified (principal); D69.6 Thrombocytopenia, unspecified
CPT/HCPCS: 36430; 85014; 85018; 85049; 86850; 86900; 86901; 86922; J1642; P9016; P9035; Q0163

== ENCOUNTER 2018-09-11 18:04 | Inpatient (IN) | payer MEDICARE ==
[2018-09-11] MEDS ORDERED: Acetaminophen 650 MG Suppository ONE (18:40)
[2018-09-11 18:43] LABS: Bilirubin Negative (Negative); Blood, Urine Large (Negative); Clarity CLOUDY (Clear); Glucose, Urine (Dipstick) 100 mg/dL (Negative); Leukocyte Negative (Negative); Nitrite Negative (Negative); Protein, Urine (Dipstick) 100 mg/dL (Neg-Trace); Specific Gravity, Urine 1.017 (1.002-1.036)
[2018-09-11 18:46] LABS: Bacteria/HPF None Seen HPF (None Seen)
[2018-09-11 18:46] LABS: Actual Bicarbonate (HCO3a) 12.2 mEq/L (22-28); Analyzer IN Cardio ER; Base Excess (BEa) -10.1 mEq/L (-2.0 to +3.0); Calcium, Ionized 0.95 mmol/L (1.12-1.30); Carboxyhemoglobin (COHb) 0.3 gm% (0.0-3.0); Hemoglobin (Hb) 8.8 g/dL (12.0-16.0); O2 Tension (PaO2) 83.3 mmHg (> 70.0); Potassium - ABG Lab 2.54 mmol/L (3.70-5.30); pH, Arterial 7.46 (7.35-7.45)
[2018-09-11 18:47] LABS: Pathc Cast-AUWi Flag 4.76 (0-2.49)
[2018-09-11 18:52] LABS: CO2 Tension 17.7 mmHg (35.0-45.0)
[2018-09-11 18:53] LABS: ALV-art Gradient 251.075 (0-20)
[2018-09-11 19:02] LABS: Hyaline Casts/LPF NONE SEEN LPF (0-3 Hyaline); Manual Microscopic Reviewed? No Path Casts Seen; Other Casts/LPF 0-3 COARSE GRAN LPF (0-3 Hyaline); Renal Epithelial None Seen HPF (0-3); Transitional Epithelial NONE SEEN HPF (0-3)
[2018-09-11] MEDS ORDERED: Cefepime 2 GM VIAL ONE (19:10)
[2018-09-11 19:18] LABS: Hemoglobin 8.9 g/dL (12.0-16.0); Mean Corpuscular HGB CONC 34.6 g/dL (32.0-36.0); Mean Corpuscular Hemoglobin 29.4 pg (27.0-31.0); Mean Platelet Volume 10.5 fL (7.4-10.4); Platelet Count 13 thou/uL (130-400); RBC Distribution Width 14.5 % (11.5-14.5); Red Blood Cell (RBC) Count 3.02 mill/uL (4.20-5.40); White Blood Cell (WBC) Count Less than 0.1 thou/uL (4.8-10.8)
--- NOTE | 2018-09-11 19:26 | RAD ---
XR Chest 1 View Portable History: Dyspnea Comparison: Radiograph August 29, 2018 Findings: Progressive worsening multifocal airspace opacities. Heart size is enlarged. Moderate effus ions. Port catheter tip sits at the mid SVC. Impression: 1. Progressive multifocal airspace opacities suggesting bronchopneumonia. 2. Moderate left and small right effusion. 3. Cardiomegaly and pulmonary arterial hypertension.
[2018-09-11 19:35] LABS: ALT (SGPT) 45 U/L (8-55); AST (SGOT) 96 U/L (5-34); Albumin 2.4 g/dL (3.4-4.8); Alkaline Phosphatase 86 U/L (40-150); Anion Gap 13 mmol/L (10-20); BUN (Urea Nitrogen) 34 mg/dL (9.8-20.1); Bilirubin, Total 1.4 mg/dL (0.2-1.2); Calc. Creatinine Clearance 0 mL/min (70-130); Calcium 6.8 mg/dL (7.8-10.44); Carbon Dioxide 14 mmol/L (23-31); Chloride 99 mmol/L (98-107); Estimated GFR-MDRD 29; Glucose 118 mg/dL (80-115); Magnesium 1.1 mg/dL (1.6-2.6); Protein, Total 5.4 g/dL (6.0-8.3); Sodium 124 mmol/L (136-145)
[2018-09-11 19:38] LABS: Potassium 2.4 mmol/L (3.5-5.1)
[2018-09-11 19:43] LABS: Platelet Morphology Comment Appears Decreased
[2018-09-11] MEDS ORDERED: Potassium Chloride 20 MEQ/100 ML PREMIX BAG ONE (19:52)
[2018-09-11] MEDS ORDERED: Magnesium 2 GM/50 ML BAG (IN WATER) ONE (19:52)
[2018-09-11 19:55] LABS: CKMB 0.6 ng/mL (0-6.6)
[2018-09-11] MEDS ORDERED: Acetaminophen 650 MG Suppository PR PRN (21:12)
[2018-09-11] MEDS ORDERED: Acetaminophen 325 MG TAB PO PRN (21:12)
[2018-09-11] MEDS ORDERED: Ondansetron ODT 4 MG TAB PO PRN (21:12)
[2018-09-11] MEDS ORDERED: Ondansetron PF 4 MG/2 ML Vial IVP PRN (21:12)
[2018-09-11] MEDS ORDERED: Temazepam 15 MG CAP PO PRN (21:13)
[2018-09-11] MEDS ORDERED: Potassium Chloride 20 MEQ in Premix Bag 1 BAG IVPB SCH ×2 (21:30→23:45)
[2018-09-11 22:27] VITALS: BMI 25.7
[2018-09-11 22:27] LABS: Anion Gap 15 mmol/L (10-20); BUN (Urea Nitrogen) 34 mg/dL (9.8-20.1); Calc. Creatinine Clearance 35 mL/min (70-130); Calcium 6.5 mg/dL (7.8-10.44); Carbon Dioxide 11 mmol/L (23-31); Chloride 103 mmol/L (98-107); Estimated GFR-MDRD 27; Glucose 109 mg/dL (80-115); Sodium 126 mmol/L (136-145)
[2018-09-11 22:30] LABS: Potassium 2.6 mmol/L (3.5-5.1)
[2018-09-11 22:37] LABS: Troponin I 0.418 ng/mL (< 0.028)
[2018-09-11] MEDS ORDERED: Acetaminophen 650 MG in Premix Bag 1 BAG IVPB SCH (23:15)
[2018-09-11 23:46] LABS: Lactic Acid 7.1 mmol/L (0.5-2.2)
[2018-09-11 23:50] LABS: Anion Gap 17 mmol/L (10-20); BUN (Urea Nitrogen) 36 mg/dL (9.8-20.1); Calc. Creatinine Clearance 31 mL/min (70-130); Calcium 6.8 mg/dL (7.8-10.44); Carbon Dioxide 11 mmol/L (23-31); Chloride 101 mmol/L (98-107); Estimated GFR-MDRD 24; Glucose 108 mg/dL (80-115); Sodium 126 mmol/L (136-145)
[2018-09-11 23:51] LABS: Potassium 2.6 mmol/L (3.5-5.1)
[2018-09-12] MEDS: Sodium Chloride 0.9% 1,000 ML IV SCH ×2 (00:14→09:17)
[2018-09-12] MEDS ORDERED: Cefepime 2 GM in Sodium Chloride 0.9% 100 ML IVPB SCH ×2 (02:00→06:00)
[2018-09-12] MEDS ORDERED: ALPRAZolam 0.25 MG TAB PO SCH (02:15)
--- NOTE | 2018-09-12 04:30 | HP ---
PRIMARY CARE DOCTOR: No PCP. CODE STATUS: Full code. TIME OF EVALUATION: 09:00 p.m. CHIEF COMPLAINT: Shortness of breath. HISTORY OF PRESENT ILLNESS: 68-year-old female patient with past medical history of hyperlipidemia, hypertension, history of myelodysplastic syndrome. The patient was getting chemo, but recently was stopped since the patient had developed significant weakness. The patient had been diagnosed with pneumonia on Friday. The patient also gets blood transfusion every 3 weeks. This time, the EMS was called. Heart rate was 147 and the patient had confusion, severe shortness of breath. The symptoms have started in the past few hours and had been gradually worsening associated with fever. By the time of my examination, patient is on BiPAP with severe respiratory distress, respiratory rate was in the 30s, although she had some improvement from the initial presentation. We will monitor the patient in ICU. I have consulted Dr. Villa who has helped us in treating the patient. We will follow recommendations. REVIEW OF SYSTEMS: Unable to fully obtain since the patient is in distress. Unable to complete full sentences. CONSTITUTIONAL: The patient has some fever and chills, generalized weakness. RESPIRATORY: Severe shortness of breath, cough. CARDIOVASCULAR: Palpitation. GASTROINTESTINAL: No nausea. No diarrhea. CENTRAL NERVOUS SYSTEM: The patient was dizzy. GENITOURINARY: No burning on urination. EXTREMITIES: No leg swelling. All other systems reviewed were negative except for the findings mentioned above. PAST MEDICAL HISTORY: As mentioned in the HPI. FAMILY HISTORY: Reviewed and non contributory to current presentation. PAST SURGICAL HISTORY: No surgical history. PSYCHIATRIC HISTORY: Anxiety. SOCIAL HISTORY: No drugs. No alcohol. No smoking history. ALLERGIES: TO LEXAPRO. REPORTED MEDICATIONS: 1. Atorvastatin. 2. Metoprolol. 3. Exjade. 4. Diphenoxylate and atropine. 5. Clarithromycin. 6. Klor-Con. PHYSICAL EXAMINATION: VITAL SIGNS: On presentation, blood pressure 176/126 with heart rate 134, respiratory rate was 29, oxygen saturation was 98% on non-rebreather. GENERAL APPEARANCE: The patient is alert and in increased respiratory distress. HEENT: Eyes, normal conjunctiva. Moist oral mucosa. Anicteric. No JVD. RESPIRATORY: Bilateral air entry is decreased. The patient has bilateral rales. No wheezing. Symmetric expansion. CARDIOVASCULAR: The patient is tachycardic. Regular rhythm. No murmurs. No gallop. No edema. ABDOMEN: Soft. Normal bowel sounds. MUSCULOSKELETAL: Baseline range of motion and strength. S KIN: Warm and intact. No pallor. No rash. No redness. Capillary refill seems to be intact. NEUROLOGIC: No evidence of any new focal weakness. Cranial nerves seems to be intact. PSYCHIATRIC: Patient is in good mood. No anxiety. Optimal judgment. EKG was reviewed. The patient has atrial fibrillation with RVR, QRS 86, QT corrected 382. Chest x-ray was reviewed. The patient had progressive multifocal airspace opacities suggesting bronchopneumonia, moderate left and small right pleural effusion, cardiomegaly, and pulmonary arterial hypertension. LABORATORY DATA: Reviewed. The patient has white count less than 0.1, hemoglobin 8.9, hematocrit 25.7, platelet count 13. Blood gas was done, pH 7.46, pCO2 of 17, oxygen 83.3. This was done on BiPAP with 12/6 with PEEP of 6. Chemistry; sodium 124, corrected 126 after the IV fluids; chloride 99; potassium 2.4, repeat one 2.6 after 20 mEq been given; anion gap 13; BUN 34; creatinine initial 1.73, the seconds one 2.0. GFR is 29, glucose 118. Lactic acid initially was 3.1, the second was 7.1. Calcium 6.8, magnesium 1.1, total bilirubin 1.4, AST 96, ALT 45. Troponin initial 0.2, second one 0.4, third one 0.4. Beta-natriuretic peptide 2200. Urine was done and the patient has white count 4 to 6 with proteinuria and glucosuria. ASSESSMENT AND PLAN: The patient will be placed in the hospital with following medical problems; 1. Multilobar pneumonia. The patient has been started on antibiotics and this is the reason for sepsis and acute respiratory failure. We will continue with BiPAP for now. We have consulted Pulmonary for recommendations. We will adjust treatment as per sensitivity. 2. Pancytopenia due to myelodysplastic syndrome. Might need assistance from Oncology for any further medications to increase the white count. 3. Chronic normocytic anemia, likely due to MDS. Hemoglobin is 8.9, which is much better than the previous one, so we will continue to monitor. 4. Acute respiratory alkalosis, likely secondary to pneumonia and the patient having tachypnea, to compensate for hypoxia from pneumonia. We will treat underlying condition. 5. Acute hypoxic respiratory failure. The patient is on BiPAP secondary to pneumonia. We will treat underlying condition. 6. Hypokalemia. Potassium is 2.4. We will replace electrolytes as needed. 7. Hyponatremia, which is moderate. The patient has sodium 124, corrected 126. We tried to correct 6 mEq to 9 mEq in next 24 hours. 8. Lactic acidosis secondary to sepsis. The patient initially had lactic acid of 3.1, seconds one 7.1. The patient did have also some low blood pressure, might be related to this, however, now blood pressure has improved. 9. Acute kidney injury. This is likely secondary to sepsis. We will treat underlying condition. 10. Wjg-HK-iplogyzjq myocardial infarction, likely ulj-[id number] myocardial infarction type 2. Initial troponin 0.21, second one 0.4, third one 0.490. This is likely secondary to hypoxia and acute respiratory failure and pneumonia, we will treat underlying condition. 11. Possible urinary tract infection. There is a mild elevation in leukocyte. Patient is covered with antibiotics that will cover for this infection in case is present. 12. Deep venous thrombosis prophylaxis. Job ID: [id number] MTDD
[2018-09-12 05:33] LABS: Anion Gap 19 mmol/L (10-20); BUN (Urea Nitrogen) 38 mg/dL (9.8-20.1); Calc. Creatinine Clearance 28 mL/min (70-130); Calcium 6.9 mg/dL (7.8-10.44); Chloride 103 mmol/L (98-107); Estimated GFR-MDRD 21; Glucose 99 mg/dL (80-115); Potassium 3.4 mmol/L (3.5-5.1); Sodium 128 mmol/L (136-145)
[2018-09-12 05:39] LABS: Carbon Dioxide 9 mmol/L (23-31)
[2018-09-12 05:43] LABS: Platelet Count 8 thou/uL (130-400); White Blood Cell (WBC) Count 0.1 thou/uL (4.8-10.8)
[2018-09-12 06:01] LABS: Hemoglobin 6.9 g/dL (12.0-16.0); MDiff Complete? YES; Mean Corpuscular HGB CONC 34.2 g/dL (32.0-36.0); Mean Corpuscular Hemoglobin 29.8 pg (27.0-31.0); Mean Corpuscular Volume 87.1 fL (78.0-98.0); Mean Platelet Volume 12.6 fL (7.4-10.4); Platelet Morphology Comment Appears Decreased; RBC Distribution Width 14.7 % (11.5-14.5)
[2018-09-12] MEDS ORDERED: Sodium Bicarb 50 MEQ/50 ML VIAL ONE (06:15)
[2018-09-12 06:30] LABS: Actual Bicarbonate (HCO3a) 7.5 mEq/L (22-28); Base Excess (BEa) -18.9 mEq/L (-2.0 to +3.0); Calcium, Ionized 0.98 mmol/L (1.12-1.30); Carboxyhemoglobin (COHb) 1.5 gm% (0.0-3.0); Hemoglobin (Hb) 6.7 g/dL (12.0-16.0); O2 Tension (PaO2) 98.5 mmHg (> 70.0); Potassium - ABG Lab 3.79 mmol/L (3.70-5.30)
[2018-09-12 06:31] LABS: Puncture Site LRA; pH, Arterial 7.19 (7.35-7.45)
[2018-09-12] MEDS ORDERED: Midazolam HCl 2 mg/2 ml Vial ONE (06:47)
[2018-09-12] MEDS ORDERED: Norepinephrine 8 MG in Sodium Chloride 0.9% 250 ML 242 ML IVPB PRN (06:58)
[2018-09-12] MEDS ORDERED: Sodium Bicarbonate 150 MEQ in Dextrose 5% in Water 1,000 ML IV SCH (07:00)
[2018-09-12] MEDS ORDERED: Albuterol Sulfate 2.5 mg/3 ml Neb NEB SCH (07:00)
[2018-09-12] MEDS ORDERED: Hydrocortisone Sod Succ/PF 100 mg/2 ml Vial IVP SCH (07:00)
[2018-09-12] MEDS ORDERED: Ventilator Sedation Protocol 1 EACH FS SCH (07:00)
[2018-09-12] MEDS ORDERED: Midazolam HCl 2 mg/2 ml Vial SLOW IVP SCH (07:00)
[2018-09-12] MEDS ORDERED: Amiodarone 450 MG in Dextrose 5% in Water 250 ML IVPB SCH (07:00)
[2018-09-12] MEDS ORDERED: Fentanyl BOLUS 250 ML IVPB PRN (07:06)
[2018-09-12] MEDS ORDERED: DISCONTINUE PREVIOUS NARCOTIC PAIN MEDICATIONS AND BENZODIAZEPINES FS SCH (07:06)
[2018-09-12] MEDS ORDERED: fentaNYL Citrate/PF 2,000 MCG in Sodium Chloride 0.9% 60 ML IV SCH (07:06)
[2018-09-12] MEDS ORDERED: Lorazepam 2 MG/ML VIAL SLOW IVP PRN (07:06)
[2018-09-12] MEDS ORDERED: Propofol BOLUS 1,000 MG/100 ML VIAL IV PRN (07:06)
[2018-09-12] MEDS ORDERED: Propofol 1,000 MG/100 ML VIAL IV PRN (07:06)
[2018-09-12] MEDS ORDERED: Morphine 2 MG/ML SYRINGE SLOW IVP PRN (07:06)
[2018-09-12] MEDS ORDERED: EPINEPHrine 1 MG/ML AMP ONE ×2 (07:16→09:45)
[2018-09-12] MEDS ORDERED: Norepinephrine 4 MG/4 ML VIAL ONE (07:16)
[2018-09-12] MEDS ORDERED: EPINEPHrine 1 MG/10 ML Abboject SYRINGE ONE (07:17)
--- NOTE | 2018-09-12 07:40 | CON ---
DATE OF CONSULTATION: 09/12/2018 SERVICE: Pulmonary Medicine. REASON FOR CONSULTATION: Respiratory failure. HISTORY OF PRESENT ILLNESS: The patient is a 68-year-old white female with past medical history significant for lymphoma. She has undergone multiple rounds of chemotherapy. Ultimately, she presented to the hospital with increasing dyspnea that came on over a period of several days. On Friday, the patient was diagnosed with pneumonia and was started on some antibiotics. She gets blood transfusions every three weeks. Most recently was a couple of weeks ago. She ended up having a fever. She presented to the Emergency Department with respiratory rate in the 30s. She was tucked into the ICU. She had a very significant acidosis, which was getting worse. She got 3 L of fluid, broad-spectrum antibiotics. At this point, the patient has one word dyspnea. She is on BiPAP, breathing 31 times per minute. She does look uncomfortable. PAST MEDICAL HISTORY: 1. Myelodysplastic syndrome. 2. Hypertension. 3. Dyslipidemia. PAST SURGICAL HISTORY: None. SOCIAL HISTORY: Negative for alcohol, tobacco, or illicit drug use. She has no exposure to chemicals, dust, asbestos, or tuberculosis. FAMILY HISTORY: Noncontributory. ALLERGIES: LEXAPRO. MEDICATIONS: List of her inpatient medications was reviewed. We have made multiple updates including initiating sedating medications and steroids. REVIEW OF SYSTEMS: General; head, ears, eyes, nose, throat; cardiovascular; respiratory; GI; ; musculoskeletal; neurologic; and skin are negative except as mentioned in the HPI. PHYSICAL EXAMINATION: VITAL SIGNS: Currently, afebrile. She had a T-max of 99.3, but current temperature is 96.5. Pulse 131, blood pressure 89/63, respirations 32, saturation 96% on 50% FiO2. GENERAL: The patient is awake and alert. She is in moderate respiratory distress. HEENT: Normocephalic and atraumatic. Sclerae white. Conjunctivae pink. Oral mucosa is moist without lesions. LUNGS: Decent air entry. There is no prolonged expiratory phase. There is minimal wheezing present but rhonchi and crackles predominate. HEART: Normal rate and regular. ABDOMEN: Soft, nontender, and nondistended. Bowel sounds are positive. MUSCULOSKELETAL: No cyanosis or clubbing. There is trace 1+ pitting in the bilateral lower extremities. The lower extremities are mottled below the level of the knee LABORATORY DATA: WBC 0.1, hemoglobin 6.9, and platelets 8. PH 7.19, pCO2 20, PO2 98, on 50% FiO2 at that time. Lactate is up trending to 9.0, calcium 6.9, troponin 0.4, creatinine 2.28, and potassium 3.4. IMAGING STUDIES: Chest x-ray demonstrates multifocal infiltrates. There is likely a left-sided pleural effusion and possibly a small right-sided pleural effusion. Vascular congestion is present, particularly on the right. Cardiac silhouette is generous, though this is in AP film. Carinal angle is quite wide. ASSESSMENT: 1. Severe sepsis. 2. Healthcare-associated pneumonia. 3. Pancytopenia secondary to myelodysplastic syndrome. 4. Acute kidney injury. 5. Bbn-XS-tpheemzhb myocardial infarction. DISCUSSION AND PLAN: We will prepare to intubate the patient. She is critically ill right now. I will get an echocardiogram to assess left ventricular heart function. My suspicion is if the patient has a true infection, superimposed on that, she likely has underlying cardiac issues. Her BNP was elevated on presentation to the outside hospital. Cardiology consultation and nephrology consultations will be placed. I will give her three amps of bicarb and initiate a bicarb drip for the time being. This patient is critically ill and would not be unexpected during this hospital stay. Job ID: [id number]
--- NOTE | 2018-09-12 07:53 | RAD ---
PORTABLE CHEST: 09/12/2018 PROVIDED CLINICAL HISTORY: Respiratory insufficiency. COMPARISON: 09/11/2018 FINDINGS: Interval placement of endotracheal tube, the tip of which projects in the region of the thoracic inle t. Additional significant interval change with respect to the prior examination is not apparent. IMPRESSION: As above. POS: OFF
[2018-09-12 08:19] LABS: Prothrombin Time 22.4 SEC (12.0-14.7)
[2018-09-12] MEDS ORDERED: metroNIDAZOLE 500 MG in Premix Bag 1 BAG IVPB SCH ×3 (08:30→15:00)
[2018-09-12] MEDS ORDERED: Pantoprazole 40 MG VIAL IVP SCH (09:00)
[2018-09-12] MEDS ORDERED: Atorvastatin Calcium 20 MG TAB PO SCH (09:00)
[2018-09-12 11:47] VITALS: TEMP 99
[2018-09-12 11:55] VITALS: BP 84/53
[2018-09-12 13:27] LABS: Hemoglobin 6.9 g/dL (12.0-16.0)
[2018-09-12 13:47] LABS: Lactic Acid 18.9 mmol/L (0.5-2.2)
[2018-09-12 13:56] LABS: Actual Bicarbonate (HCO3a) 1.9 mEq/L (22-28); Calcium, Ionized 0.84 mmol/L (1.12-1.30); Carboxyhemoglobin (COHb) 1.2 gm% (0.0-3.0); Hemoglobin (Hb) 7.2 g/dL (12.0-16.0); O2 Tension (PaO2) 79.7 mmHg (> 70.0); Potassium - ABG Lab 5.34 mmol/L (3.70-5.30)
[2018-09-12 13:57] LABS: pH, Arterial 6.76 (7.35-7.45)
[2018-09-12 14:03] LABS: Actual Bicarbonate (HCO3a) 7.5 mEq/L (22-28); CO2 Tension 17.2 mmHg (35.0-45.0); Calcium, Ionized 0.89 mmol/L (1.12-1.30); Carboxyhemoglobin (COHb) 2.2 gm% (0.0-3.0); Hemoglobin (Hb) 5.9 g/dL (12.0-16.0); O2 Tension (PaO2) 79.8 mmHg (> 70.0); Potassium - ABG Lab 3.17 mmol/L (3.70-5.30); Puncture Site A-LINE; pH, Arterial 7.26 (7.35-7.45)
[2018-09-12] MEDS ORDERED: Amiodarone 150 MG/3 ML VIAL ONE (14:16)
--- NOTE | 2018-09-12 14:32 | PDOC.PN ---
- Subjective Encounter Start Date: 09/12/18 Encounter Start Time: 11:40 Subjective: is awake on vent, got intubated this am -: and daughter at bedside - Objective Resuscitation Status - Order Detail: 09/11/18 21:12 Resuscitation Status Routine Resuscitation Status: FULL: Full Resuscitation MAR Reviewed: Yes Vital Signs & Weight: Vital Signs (12 hours) Temp Pulse Pulse Resp BP BP BP 09/12/18 11:52 72 84/53 L 09/12/18 11:47 99 F 71 31 H 82/52 L 09/12/18 11:34 99 F 71 31 H 83/52 L 09/12/18 11:32 99.0 F 74 32 H 91/53 L 09/12/18 11:31 99.0 F 09/12/18 08:00 34 H 09/12/18 07:49 98.1 F 97 34 H 99/66 09/12/18 06:58 09/12/18 06:05 127 H 09/12/18 05:00 96.5 F L 09/12/18 03:16 107 H Pulse Ox 09/12/18 11:52 09/12/18 11:47 94 L 09/12/18 11:34 95 09/12/18 11:32 88 L 09/12/18 11:31 09/12/18 08:00 91 L 09/12/18 07:49 95 09/12/18 06:58 95 09/12/18 06:05 09/12/18 05:00 09/12/18 03:16 95 Weight Admit Weight 168 lb 6.931 oz Weight 169 lb 5.04 oz Most Recent Monitor Data Heart Rate from ECG 78 NIBP 83/67 NIBP BP-Mean 72 Respiration from ECG 28 SpO2 85 I&O: 09/11/18 09/12/18 09/13/18 06:59 06:59 06:59 Intake Total 1250 600 Output Total 0 180 Balance 1250 420 Result Diagrams: 09/12/18 13:03 09/12/18 05:00 Phys Exam - Physical Examination HEENT: PERRLA, sclera anicteric Neck: no JVD, supple Respiratory: no wheezing, no rales Cardiovascular: RRR, no rub Gastrointestinal: soft, no distention, positive bowel sounds Musculoskeletal: no edema, pulses present Neurological: non-focal, moves all 4 limbs Dx/Plan (1) Metabolic acidosis Code(s): E87.2 - ACIDOSIS Status: Acute (2) New onset a-fib Code(s): I48.91 - UNSPECIFIED ATRIAL FIBRILLATION Status: Acute (3) Pneumonia Code(s): J18.9 - PNEUMONIA, UNSPECIFIED ORGANISM Status: Acute Qualifiers: Pneumonia type: due to unspecified organism Laterality: bilateral (4) Myelodysplastic syndrome Code(s): D46.9 - MYELODYSPLASTIC SYNDROME, UNSPECIFIED Status: Chronic (5) Pancytopenia Code(s): D61.818 - OTHER PANCYTOPENIA Status: Chronic (6) MILLER (acute kidney injury) Code(s): N17.9 - ACUTE KIDNEY FAILURE, UNSPECIFIED Status: Acute (7) Acute respiratory failure with hypoxia and hypercapnia Code(s): J96.01 - ACUTE RESPIRATORY FAILURE WITH HYPOXIA; J96.02 - ACUTE RESPIRATORY FAILURE WITH HYPERCAPNIA Status: Acute (8) Bacteremia Code(s): R78.81 - BACTEREMIA Status: Acute Comment: enterobacter species (9) Severe sepsis Code(s): A41.9 - SEPSIS, UNSPECIFIED ORGANISM; R65.20 - SEVERE SEPSIS WITHOUT SEPTIC SHOCK Status: Acute Comment: with septic shock on pressors - Plan d/w and daughter at bedside, were aware of very poor prognosis -: pt at 1352 pm today -: Cause of : severe sepsis with shock, miller with met acidosis, pancytopen -: with h/o MDS. -: Body will be release to family per hosp protocol * . Review of Systems - Medications/Allergies Allergies/Adverse Reactions: Allergies Allergy/AdvReac Type Severity Reaction Status Date / Time escitalopram [From Lexapro] Allergy Nausea Verified 09/11/18 22:56 Medications: Current Medications Acetaminophen (Tylenol) 650 mg PO Q4H PRN PRN Reason: Headache/Fever/Mild Pain (1-3) Acetaminophen (Tylenol) 650 mg TN Q4H PRN PRN Reason: Headache/Fever/Mild Pain (1-3) Albuterol Sulfate (Ventolin) 2.5 mg NEB [id number] RENARD Last Admin: 09/12/18 08:37 Dose: Not Given Albuterol/Ipratropium (Duoneb) 3 ml NEB [id number] RENARD Last Admin: 09/12/18 11:56 Dose: Not Given Atorvastatin Calcium (Lipitor) 20 mg PO DAILY [facility] Last Admin: 09/12/18 09:17 Dose: Not Given Hydrocortisone Sodium Succinate (Solu-Cortef) 50 mg IVP Q6H RENARD Stop: 09/15/18 07:01 Last Admin: 09/12/18 09:24 Dose: 50 mg Cefepime HCl 2 gm/ Sodium (Chloride) 100 mls @ 200 mls/hr IVPB 0600,1800 RENARD Last Admin: 09/12/18 05:35 Dose: 100 mls Vancomycin HCl 750 mg/ Sodium (Chloride) 250 mls @ 250 mls/hr IVPB Q24HR RENARD Sodium Chloride (Normal Saline 0.9%) 1,000 mls @ 150 mls/hr IV .[id number] RENARD Last Admin: 09/12/18 09:17 Dose: Not Given Sodium Bicarbonate 150 meq/ (Dextrose/Water) 1,150 mls @ 100 mls/hr IV .[id number] [facility] Last Admin: 09/12/18 09:24 Dose: 1,150 mls Amiodarone HCl 450 mg/ (Dextrose/Water) 259 mls @ 0 mls/hr IVPB INF RENARD; Protocol Norepinephrine Bitartrate 8 mg (/ Sodium Chloride) 250 mls @ 0 mls/hr IVPB PRN PRN; Protocol PRN Reason: To Maintain MAP > 65 Fentanyl Citrate 2,000 mcg/ (Sodium Chloride) 100 mls @ 0 mls/hr IV INF RENARD; Protocol Stop: 10/12/18 07:06 Last Admin: 09/12/18 09:15 Dose: 100 mls Fentanyl Citrate (Fentanyl Bolus) 250 mls @ 0 mls/hr IVPB PRN PRN PRN Reason: Breakthrough pain/agitation Stop: 10/12/18 07:06 Metronidazole 500 mg/ Device 100 mls @ 100 mls/hr IVPB 0300,0900,1500,2100 RENARD Vasopressin 40 unit/ Sodium (Chloride) 102 mls @ 6 mls/hr IV INF RENARD; Protocol Epinephrine 1 mg/ Dextrose/ (Water) 251 mls @ 0 mls/hr IVPB INF RENARD Lorazepam (Ativan) 2 mg SLOW IVP Q1H PRN PRN Reason: Breakthrough agitation Stop: 10/12/18 07:06 Miscellaneous Medication (Pharmacy To Dose) 1 each IVPB ONE RENARD Stop: 10/11/18 21:46 Miscellaneous Medication (Ventilator Sedation Protocol) 1 each FS ONE RENARD Stop: 09/12/18 23:00 Morphine Sulfate (Morphine) 2 mg SLOW IVP Q1H PRN PRN Reason: BREAKTHROUGH PAIN/Agitation Stop: 10/12/18 07:06 Discontinue Previous Narcotic Pain Medications And Benzodiazepines 1 each FS .ONE RENARD Stop: 10/12/18 07:06 Ondansetron HCl (Zofran Odt) 4 mg PO Q6H PRN PRN Reason: Nausea/Vomiting Ondansetron HCl (Zofran) 4 mg IVP Q6H PRN PRN Reason: Nausea/Vomiting Pantoprazole Sodium (Protonix) 40 mg IVP Q12HR [facility] Last Admin: 09/12/18 09:24 Dose: 40 mg Propofol (Diprivan) 1,000 mg IV INF PRN; Protocol PRN Reason: TO ACHIEVE GOAL RASS Stop: 10/12/18 07:06 Propofol (Diprivan Bolus) 20 mg IV Q5MIN PRN PRN Reason: BREAKTHROUGH AGITATION Stop: 10/12/18 07:06
[2018-09-12] MEDS ORDERED: Vancomycin HCl 750 MG in Sodium Chloride 0.9% 250 ML 250 ML IVPB SCH (20:00)
--- NOTE | 2018-09-12 22:21 | OP ---
DATE OF PROCEDURE: 09/12/2018 SERVICE: Pulmonary Medicine. PROCEDURE PERFORMED: Emergent endotracheal intubation. CONSENT: Procedure was performed emergently secondary to clinical deterioration and respiratory failure. MEDICATIONS USED: 1. Versed 2 mg IV push. 2. Etomidate 20 mg IV push. PREPROCEDURE DIAGNOSES: 1. Acute hypoxic respiratory failure. 2. Septic shock. POSTPROCEDURE DIAGNOSES: 1. Acute hypoxic respiratory failure. 2. Septic shock. DESCRIPTION OF PROCEDURE: Vital sign monitoring was accomplished by noninvasive hemodynamic monitoring, pulse oximetry, and telemetry. In the supine position, the patient was preoxygenated with [id number] ventilation and maintained with saturations of 100%. Following induction of anesthesia, a GlideScope was inserted through mouth offering clear identification of the posterior oropharynx and laryngeal structures with a grade 1 view. A 7.5-Green[place]ic endotracheal tube was visualized passing through the vocal cords. Placement was confirmed by condensation in endotracheal tube, colorimetric capnography, and bi-axillary chest auscultation. Endotracheal tube was secured at 23 cm, measured at the teeth. The patient was placed on mechanical ventilation with good return of volumes. The post procedure x-ray demonstrated good location for the endotracheal tube. ESTIMATED BLOOD LOSS: None. COMPLICATIONS: None. Job ID: [id number]
--- NOTE | 2018-09-12 22:26 | OP ---
DATE OF PROCEDURE: 09/12/2018 SERVICE: Pulmonary Medicine. PROCEDURE PERFORMED: Right-sided radial artery catheter placement. CONSENT: The consent was implied secondary to emergent situation. MEDICATIONS USED: None. INDICATION: Septic shock. DESCRIPTION OF PROCEDURE: Time-out was performed by the procedure team. The patient was positively identified using name and date of . The procedure site was marked. Vital sign monitoring was accomplished by noninvasive hemodynamic monitoring, pulse oximetry, and telemetry. With the patient in the supine position, the right wrist was placed in extended position and the radial artery was palpated. The skin was prepped and draped in sterile fashion. The radial artery was cannulated under direct palpation on the third attempt with return of bright red, pulsatile blood. The arterial catheter was inserted without difficulty and sutured in place with 3-0 silk sutures x1. The catheter was attached to the monitor, and appropriate arterial waveform was noted. A sterile dressing was applied and the procedure was terminated. ESTIMATED BLOOD LOSS: 3 mL. COMPLICATIONS: None. Job ID: [id number]
--- NOTE | 2018-09-13 03:37 | CON ---
DATE OF CONSULTATION: REASON FOR CONSULTATION: Acute kidney injury and severe metabolic acidosis. IMPRESSION: 1. Severe metabolic acidosis, mainly from lactic acidosis in the context of sepsis. 2. Acute kidney injury related to sepsis. 3. Pancytopenia. 4. Cardiopulmonary failure. PLAN: 1. The patient too unstable to undergo any form of renal replacement therapy; given the significant cardiopulmonary failure and dependent on pressors. 2. Access for any form of renal replacement therapy is virtually impossible in this patient with severe thrombocytopenia. 3. Extremely poor prognosis. 4. We will continue with medical therapy in the way of bicarb supplementation. HISTORY OF PRESENT ILLNESS: History is that of a 68-year-old female patient with myelodysplastic syndrome who presented here with pneumonia and noted to be severely pancytopenic, very septic dependent on multiple pressors. Consulted, because the patient noted with severe metabolic acidosis in the context of lactic acidemia due to sepsis. The patient was stable to undergo any form of renal intervention. PAST MEDICAL HISTORY: Significant for dyslipidemia, hypertension, myelodysplastic syndrome, status post chemo. MEDICATIONS: Reviewed as documented in the [employer]. SOCIAL HISTORY: Could not be obtained. FAMILY HISTORY: Could not be obtained. REVIEW OF SYSTEMS: Could not be done. PHYSICAL EXAMINATION: GENERAL: The patient noted to be critically ill looking, septic, on life support. VITAL SIGNS: Heart rate in the 70s to 60s, respiratory rate of 18, blood pressure 79/55. HEENT: Remarkable for endotracheal tube in place. CARDIOVASCULAR: First and second heart sounds were heard. RESPIRATORY: Revealed vented sounds. DIGESTIVE SYSTEM: Revealed a benign abdomen. EXTREMITIES: No peripheral edema. SKIN: No new gross rash. LYMPHATICS: No peripheral lymphadenopathy. SUMMARY: A 68-year-old female patient who is immunosuppressed, presented here as severely septic. Thank you for this consultation. We will follow with you. Job ID: [id number]
--- NOTE | 2018-09-13 16:14 | DIS ---
DATE OF ADMISSION: 09/11/2018 DATE OF DISCHARGE: 09/12/2018 SUMMARY: DATE OF : 09/12/2018 at 13:52. PRIMARY CAUSE OF : Septic shock secondary to Enterobacter bacteremia, severe metabolic acidosis, acute respiratory failure with hypoxia and hypercapnia, pneumonia, pancytopenia with history of myelodysplastic syndrome, acute kidney injury. SECONDARY CAUSE OF : Atrial fibrillation. BRIEF COURSE DURING HOSPITALIZATION: The patient initially was brought to emergency room for complaints of shortness of breath. She was found to be pancytopenic with severe sepsis and septic shock and pneumonia. The patient was also in respiratory distress. She was initially tried on BiPAP, but the patient developed severe hypoxia with severe acidosis and had to be intubated. She had known history of myelodysplastic disorder and was on chemotherapy. She was off chemotherapy for almost a month, despite which she was still pancytopenic. She was evaluated by Dr. Villa for Pulmonology and Dr. Jaimes for Nephrology as well. Despite multiple efforts to make her better, the patient worsened. She was on multiple pressors. The family did not want to pursue further measures as she was maxed out on all vasopressors. They went in for a withdrawal of care at 13:50, and the patient at 13:52. Body will be released per hospital protocol for the family. Job ID: [id number] MTDD
== END 2018-09-12 13:52 | disposition expired | DRG 871 ==
LOC: ERS 18:04 → CCU 20:36
PROVIDERS: ADMIT Hospitalist; ATTEND Hospitalist
PROC: 0BH18EZ Insertion of Endotracheal Airway into Trachea, Via Natural or Artificial Opening Endoscopic (ICD-10-PCS; principal; 2018-09-12)
PROC: 5A1935Z Respiratory Ventilation, Less than 24 Consecutive Hours (ICD-10-PCS; 2018-09-12)
PROC: 03HY32Z Insertion of Monitoring Device into Upper Artery, Percutaneous Approach (ICD-10-PCS; 2018-09-12)
PROC: 4A133B1 Monitoring of Arterial Pressure, Peripheral, Percutaneous Approach (ICD-10-PCS; 2018-09-12)
PROC: 5A09357 Assistance with Respiratory Ventilation, Less than 24 Consecutive Hours, Continuous Positive Airway Pressure (ICD-10-PCS; 2018-09-12)
PROC: 4A133J1 Monitoring of Arterial Pulse, Peripheral, Percutaneous Approach (ICD-10-PCS; 2018-09-12)
PROC: 3E033XZ Introduction of Vasopressor into Peripheral Vein, Percutaneous Approach (ICD-10-PCS; 2018-09-12)
DX: A41.4 Sepsis due to anaerobes (principal); J18.1 Lobar pneumonia, unspecified organism; J96.01 Acute respiratory failure with hypoxia; I21.A1 Myocardial infarction type 2; J96.02 Acute respiratory failure with hypercapnia; R65.21 Severe sepsis with septic shock; E87.2 Acidosis; N17.9 Acute kidney failure, unspecified; E87.1 Hypo-osmolality and hyponatremia; D61.818 Other pancytopenia; D46.9 Myelodysplastic syndrome, unspecified; E78.5 Hyperlipidemia, unspecified; I10 Essential (primary) hypertension; F41.9 Anxiety disorder, unspecified; E87.6 Hypokalemia; I48.91 Unspecified atrial fibrillation; Z87.01 Personal history of pneumonia (recurrent); Z79.899 Other long term (current) drug therapy; Z88.8 Allergy status to other drugs, medicaments and biological substances
CPT/HCPCS: 36415; 36430; 71045; 80048; 80053; 81003; 81015; 82248; 82553; 82805; 83605; 83615; 83735; 83880; 84100; 84443; 84484; 84550; 85014; 85018; 85025; 85049; 85610; 86850; 86900; 86901; 86922; 87040; 87077; 87086; 87149; 87186; 93005; 93306; 94003; 94640; 94660; A4353; C9113; J0131; J0171; J0282; J0692; J1642; J1720; J2250; J3010; J3370; J3475; J3480; J3490; J7050; J7070; J7620; P9016; P9035; Q0163